=== PATIENT | female | born 1985 | race Caucasian/White ===

== ENCOUNTER → 2016-10-04 | Outpatient (REF) | payer OTHER ==
[2016-10-05 12:14] LABS: MEAN CORPUSCULAR HGB CONC 33.1 g/dl (32.0-36.5); MEAN CORPUSCULAR VOLUME 81.4 fl (80.0-96.0); RED CELL DISTRIBUTION WIDTH 12.8 % (11.5-14.5); WHITE BLOOD COUNT 8.8 K/mm3 (4.0-10.0)
[2016-10-05 12:53] LABS: ALBUMIN 4.1 GM/DL (3.2-5.2); ALBUMIN/GLOBULIN RATIO 1.52 (1.00-1.93); ALKALINE PHOSPHATASE 53 U/L (45-117); ALT/SGPT 14 U/L (12-78); ANION GAP 8 MEQ/L (8-16); AST/SGOT 12 U/L (15-37); BILIRUBIN,TOTAL 0.2 MG/DL (0.2-1.0); BLOOD UREA NITROGEN 11 MG/DL (7-18); CALCIUM LEVEL 8.8 MG/DL (8.5-10.1); CARBON DIOXIDE LEVEL 27 MEQ/L (21-32); CHLORIDE LEVEL 105 MEQ/L (98-107); CHOLESTEROL LEVEL 168 MG/DL (<200); CREATININE FOR GFR 0.85 MG/DL (0.55-1.02); FERRITIN 11 NG/ML (8-252); FREE T4 0.86 NG/DL (0.76-1.46); GLOMERULAR FILTRATION RATE > 60.0 (>60); GLUCOSE, FASTING 81 MG/DL (70-105); POTASSIUM SERUM 3.8 MEQ/L (3.5-5.1); SODIUM LEVEL 140 MEQ/L (136-145); TOTAL PROTEIN 6.8 GM/DL (6.4-8.2); TRIGLYCERIDES LEVEL 82 MG/DL (<150)
== END ==
LOC: M SFHCCLAY 14:58
PROVIDERS: ATTEND Family Medicine
DX: Z01.419 Encounter for gynecological examination (general) (routine) without abnormal findings (principal); R53.83 Other fatigue; R03.0 Elevated blood-pressure reading, without diagnosis of hypertension

== ENCOUNTER → 2016-10-04 | Outpatient (REF) | payer OTHER | LOC: M SFHCCLAY 14:15 | PROVIDERS: ATTEND Family Medicine | DX: Z12.4 Encounter for screening for malignant neoplasm of cervix (principal) ==

== ENCOUNTER → 2016-11-15 | Outpatient (REF) | payer OTHER | LOC: M SFHCCLAY 16:12 | PROVIDERS: ATTEND Family Medicine | DX: D23.5 Other benign neoplasm of skin of trunk (principal) ==

== ENCOUNTER → 2017-03-02 | Outpatient (REF) | payer OTHER ==
[2017-03-02 14:31] LABS: LUTEINIZING HORMONE 4.6 mIU/mL
[2017-03-02 14:32] LABS: FOLLICLE STIMULATING HORMONE 5.5 mIU/mL
[2017-03-02 14:37] LABS: FREE T4 0.92 NG/DL (0.76-1.46)
[2017-03-06 00:06] LABS: ESTRONE SERUM 81 pg/mL (.)
== END ==
LOC: M LAB REF 12:22
PROVIDERS: ATTEND Obstetrics & Gynecology
DX: N92.1 Excessive and frequent menstruation with irregular cycle (principal)

== ENCOUNTER → 2018-07-19 | Outpatient (REF) | payer OTHER ==
[2018-07-19 12:30] LABS: BASO # 0.1 10^3/uL (0.0-0.2); BASO % 0.9 % (0.0-1.0); EOS # 0.2 10^3/uL (0.0-0.50); EOS % 1.9 % (0.0-3.0); HEMATOCRIT 40.5 % (36.0-47.0); HEMOGLOBIN 13.2 g/dl (12.0-15.5); LYMPH # 1.9 10^3/uL (1.5-4.5); LYMPH % 24.5 % (24.0-44.0); MEAN CORPUSCULAR HEMOGLOBIN 26.8 pg (27.0-33.0); MEAN CORPUSCULAR HGB CONC 32.6 g/dl (32.0-36.5); MEAN CORPUSCULAR VOLUME 82.2 fl (80.0-96.0); MONO # 0.5 10^3/uL (0.0-0.8); MONO % 6.8 % (0.0-5.0); NEUTROPHILS # 5.1 10^3/uL (1.8-7.7); NEUTROPHILS % 65.6 % (36.0-66.0); PLATELET COUNT, AUTOMATED 295 10^3/uL (150-450); RED BLOOD COUNT 4.93 10^6/uL (4.00-5.40); WHITE BLOOD COUNT 7.7 10^3/uL (4.0-10.0)
[2018-07-19 12:38] LABS: ALBUMIN 4.1 GM/DL (3.2-5.2); ALT/SGPT 14 U/L (12-78); BILIRUBIN,TOTAL 0.4 MG/DL (0.2-1.0); BLOOD UREA NITROGEN 12 MG/DL (7-18); CALCIUM LEVEL 8.8 MG/DL (8.5-10.1); CARBON DIOXIDE LEVEL 26 MEQ/L (21-32); CHLORIDE LEVEL 106 MEQ/L (98-107); GLOMERULAR FILTRATION RATE > 60.0 (>60); GLUCOSE, FASTING 90 MG/DL (70-100); SODIUM LEVEL 139 MEQ/L (136-145); TOTAL PROTEIN 7.1 GM/DL (6.4-8.2)
[2018-07-19 12:46] LABS: HEMOGLOBIN A1c 5.8 %
== END ==
LOC: M SFHCCLAY 08:44
PROVIDERS: ATTEND Family Medicine
DX: Z86.32 Personal history of gestational diabetes (principal); R03.0 Elevated blood-pressure reading, without diagnosis of hypertension; E55.9 Vitamin D deficiency, unspecified

== ENCOUNTER → 2019-01-16 | Outpatient (CLI) | payer OTHER ==
--- NOTE | 2019-01-17 09:20 | REP ---
Clinical: Acute chest pain . Comparison: 07/08/2014 . Technique: PA and lateral. Findings: The mediastinum and cardiac silhouette are normal. The lung marks are clear and without acute consolidation, effusion, or pneumothorax. The skeletal structures are intact and normal. Impression: 1. No acute cardiopulmonary process.
== END ==
LOC: M CLY 08:24
PROVIDERS: ATTEND Family Medicine
DX: R07.89 Other chest pain (principal)

== ENCOUNTER → 2019-04-29 | Outpatient (REF) | payer OTHER | LOC: M LAB REF 13:42 | PROVIDERS: ATTEND Obstetrics & Gynecology | DX: N89.8 Other specified noninflammatory disorders of vagina (principal) ==

== ENCOUNTER → 2019-07-24 | Outpatient (REF) | payer OTHER ==
[2019-07-24 12:26] LABS: BASO # 0.1 10^3/uL (0.0-0.2); BASO % 0.7 % (0.0-1.0); EOS # 0.2 10^3/uL (0.0-0.5); EOS % 1.8 % (0.0-3.0); HEMATOCRIT 45.5 % (36.0-47.0); HEMOGLOBIN 14.1 g/dl (12.0-15.5); LYMPH # 2.2 10^3/uL (1.5-5.0); LYMPH % 27.1 % (24.0-44.0); MEAN CORPUSCULAR HEMOGLOBIN 26.5 pg (27.0-33.0); MEAN CORPUSCULAR VOLUME 85.4 fl (80.0-96.0); MONO # 0.5 10^3/uL (0.0-0.8); MONO % 5.7 % (0.0-5.0); NEUTROPHILS # 5.2 10^3/uL (1.5-8.5); NEUTROPHILS % 64.2 % (36.0-66.0); PLATELET COUNT, AUTOMATED 341 10^3/uL (150-450); RED BLOOD COUNT 5.33 10^6/uL (4.00-5.40); WHITE BLOOD COUNT 8.1 10^3/uL (4.0-10.0)
[2019-07-24 13:06] LABS: ALBUMIN 4.4 GM/DL (3.2-5.2); ALT/SGPT 30 U/L (12-78); BILIRUBIN,TOTAL 0.4 MG/DL (0.2-1.0); BLOOD UREA NITROGEN 12 MG/DL (7-18); CALCIUM LEVEL 9.2 MG/DL (8.5-10.1); CARBON DIOXIDE LEVEL 27 MEQ/L (21-32); CHLORIDE LEVEL 107 MEQ/L (98-107); CHOLESTEROL LEVEL 183 MG/DL (<200); CREATININE FOR GFR 0.74 MG/DL (0.55-1.30); GLOMERULAR FILTRATION RATE > 60.0 (>60); GLUCOSE, FASTING 91 MG/DL (70-100); HDL CHOLESTEROL 57 MG/DL (>40); LDL CHOLESTEROL 113 MG/DL (<100); NON-HDL-C 126 MG/DL; POTASSIUM SERUM 4.8 MEQ/L (3.5-5.1); SODIUM LEVEL 139 MEQ/L (136-145); THYROID STIMULATING HORMONE 0.322 uIU/ML (0.358-3.740); TOTAL PROTEIN 7.4 GM/DL (6.4-8.2); TRIGLYCERIDES LEVEL 64 MG/DL (<150)
[2019-07-24 13:46] LABS: HEMOGLOBIN A1c 5.5 %
== END ==
LOC: M SFHCCLAY 09:11
PROVIDERS: ATTEND Family Medicine
DX: R73.01 Impaired fasting glucose (principal); Z86.32 Personal history of gestational diabetes; R03.0 Elevated blood-pressure reading, without diagnosis of hypertension; Z13.220 Encounter for screening for lipoid disorders; Z13.29 Encounter for screening for other suspected endocrine disorder; E55.9 Vitamin D deficiency, unspecified

== ENCOUNTER → 2019-10-10 | Outpatient (REF) | payer MEDICAID, OTHER ==
[2019-10-10 17:16] LABS: BASO # 0.1 10^3/uL (0.0-0.2); BASO % 0.5 % (0.0-1.0); EOS # 0.1 10^3/uL (0.0-0.5); EOS % 0.7 % (0.0-3.0); HEMATOCRIT 43.2 % (36.0-47.0); HEMOGLOBIN 13.7 g/dl (12.0-15.5); LYMPH # 1.9 10^3/uL (1.5-5.0); LYMPH % 18.6 % (24.0-44.0); MEAN CORPUSCULAR HEMOGLOBIN 26.8 pg (27.0-33.0); MEAN CORPUSCULAR HGB CONC 31.7 g/dl (32.0-36.5); MEAN CORPUSCULAR VOLUME 84.4 fl (80.0-96.0); MONO # 0.4 10^3/uL (0.0-0.8); MONO % 4.3 % (0.0-5.0); NEUTROPHILS # 7.8 10^3/uL (1.5-8.5); NEUTROPHILS % 75.5 % (36.0-66.0); PLATELET COUNT, AUTOMATED 287 10^3/uL (150-450); RED BLOOD COUNT 5.12 10^6/uL (4.00-5.40); WHITE BLOOD COUNT 10.4 10^3/uL (4.0-10.0)
[2019-10-10 17:44] LABS: ALBUMIN 4.1 GM/DL (3.2-5.2); ALT/SGPT 24 U/L (12-78); BILIRUBIN,TOTAL 0.2 MG/DL (0.2-1.0); BLOOD UREA NITROGEN 10 MG/DL (7-18); CARBON DIOXIDE LEVEL 28 MEQ/L (21-32); CHLORIDE LEVEL 106 MEQ/L (98-107); CREATININE FOR GFR 0.83 MG/DL (0.55-1.30); GLOMERULAR FILTRATION RATE > 60.0 (>60); GLUCOSE, FASTING 104 MG/DL (70-100); IMMUNOGLOBULIN G 800 MG/DL (681-1648); POTASSIUM SERUM 3.7 MEQ/L (3.5-5.1); SODIUM LEVEL 138 MEQ/L (136-145); TOTAL PROTEIN 7.5 GM/DL (6.4-8.2)
[2019-10-10 17:45] LABS: IMMUNOGLOBULIN E < 3.6 IU/ML (<100)
[2019-10-10 17:53] LABS: ERYTHROCYTE SEDIMENTATION RATE 4 mm/hr (0-20)
[2019-10-14 00:06] LABS: ANTI TETANUS ANTIBODY 1.77 IU/mL (<0.10)
[2019-10-18 00:07] LABS: STREP PNEUMO TYPE 1 0.5 ug/mL (>1.3); STREP PNEUMO TYPE 12F 0.2 ug/mL (>1.3); STREP PNEUMO TYPE 14 0.3 ug/mL (>1.3); STREP PNEUMO TYPE 18C 0.7 ug/mL (>1.3); STREP PNEUMO TYPE 19A 8.5 ug/mL (>1.3); STREP PNEUMO TYPE 19F 5.4 ug/mL (>1.3); STREP PNEUMO TYPE 23F 0.1 ug/mL (>1.3); STREP PNEUMO TYPE 3 9.3 ug/mL (>1.3); STREP PNEUMO TYPE 4 0.1 ug/mL (>1.3); STREP PNEUMO TYPE 6B 0.4 ug/mL (>1.3); STREP PNEUMO TYPE 7F 0.2 ug/mL (>1.3); STREP PNEUMO TYPE 8 0.3 ug/mL (>1.3); STREP PNEUMO TYPE 9N 0.2 ug/mL (>1.3); STREP PNEUMO TYPE 9V 0.2 ug/mL (>1.3)
== END ==
LOC: M LABDRAWC 16:12
PROVIDERS: ATTEND Allergy & Immunology Allergy
DX: D84.9 Immunodeficiency, unspecified (principal)

== ENCOUNTER → 2019-11-03 | Outpatient (REF) | payer OTHER | LOC: M SFHCWAGY 17:55 | PROVIDERS: ATTEND Obstetrics & Gynecology | DX: Z12.4 Encounter for screening for malignant neoplasm of cervix (principal) ==

== ENCOUNTER → 2019-12-01 | Outpatient (REF) | payer MEDICAID ==
[2019-12-09 18:07] LABS: STREP PNEUMO TYPE 1 >13.1 ug/mL (>1.3); STREP PNEUMO TYPE 14 >29.1 ug/mL (>1.3); STREP PNEUMO TYPE 18C 1.9 ug/mL (>1.3); STREP PNEUMO TYPE 19A >44.7 ug/mL (>1.3); STREP PNEUMO TYPE 23F 1.1 ug/mL (>1.3); STREP PNEUMO TYPE 3 16.3 ug/mL (>1.3); STREP PNEUMO TYPE 4 0.6 ug/mL (>1.3); STREP PNEUMO TYPE 6B 13.9 ug/mL (>1.3); STREP PNEUMO TYPE 7F 0.9 ug/mL (>1.3); STREP PNEUMO TYPE 8 10.9 ug/mL (>1.3); STREP PNEUMO TYPE 9N 2.1 ug/mL (>1.3); STREP PNEUMO TYPE 9V 2.5 ug/mL (>1.3)
[2019-12-09 19:06] LABS: PNEUMOCOCCAL AB TYPE 14 POST >29.1 ug/mL (>1.3); PNEUMOCOCCAL AB TYPE 19 POST 14.9 ug/mL (>1.3); PNEUMOCOCCAL AB TYPE 23 POST 1.2 ug/mL (>1.3); PNEUMOCOCCAL AB TYPE 26 POST 13.2 ug/mL (>1.3); PNEUMOCOCCAL AB TYPE 4 POST 0.6 ug/mL (>1.3); PNEUMOCOCCAL AB TYPE 68 POST 2.4 ug/mL (>1.3); PNEUMOCOCCAL AB TYPE18C POST 2.1 ug/mL (>1.3)
== END ==
LOC: M LABDRAWC 15:56
PROVIDERS: ATTEND Allergy & Immunology Allergy
DX: D84.9 Immunodeficiency, unspecified (principal)

== ENCOUNTER → 2020-01-11 | Outpatient (CLI) | payer OTHER ==
--- NOTE | 2020-01-11 12:24 | REP ---
FOOT: REASON: Pain. FINDINGS: The joint spaces are symmetric and relatively well maintained. There is no evidence of acute fracture or destructive osseous lesion. IMPRESSION: Negative. Electronically Signed by Gary Kwok DO 01/11/2020 01:11 P
== END ==
LOC: M WUC 11:27
PROVIDERS: ATTEND Physician Assistant
DX: M79.671 Pain in right foot (principal)

== ENCOUNTER → 2020-04-01 | Outpatient (CLI) | payer OTHER ==
--- NOTE | 2020-04-06 07:51 | REP ---
RIGHT LOWER LEG SERIES HISTORY: Contusion mid lower leg. TECHNIQUE: AP and lateral views of the right lower leg are performed. FINDINGS: The tibia and fibula are intact with no evidence of acute fracture, dislocation, or intrinsic bone disease. IMPRESSION: No acute fracture or dislocation. MTDD
== END ==
LOC: M WUC 18:31
PROVIDERS: ATTEND Physician Assistant
DX: M79.661 Pain in right lower leg (principal)

== ENCOUNTER → 2020-07-06 | Outpatient (CLI) | payer OTHER | LOC: M LABSMTC 14:04 | PROVIDERS: ATTEND Family Medicine | DX: Z20.822 Contact with and (suspected) exposure to COVID-19 (principal) ==

== ENCOUNTER → 2020-10-08 | Outpatient (CLI) | payer OTHER ==
--- NOTE | 2020-10-08 12:44 | REP ---
INDICATION: LEFT FLANK PAIN AND MICROHEMATURIA. COMPARISON: Comparison radiographs November 10, 2008.. TECHNIQUE: KUB: Two views presented. FINDINGS: The bowel gas pattern is normal. Air and stool is seen in a nondistended colon. No large or small bowel dilation is seen. No small bowel gas is noted. Psoas margins and flank stripes are intact. No mass or organomegaly is seen. An IUD is noted in place just to the right of midline in the pelvis. IMPRESSION: Negative KUB. IUD noted. <Electronically signed by Gael Srivastava > 10/08/20 0638
== END ==
LOC: M CLY 11:47
PROVIDERS: ATTEND Family Medicine
DX: R10.9 Unspecified abdominal pain (principal); R31.9 Hematuria, unspecified

== ENCOUNTER → 2020-11-18 | Outpatient (REF) | payer OTHER | LOC: M SFHCWAGY 15:16 | PROVIDERS: ATTEND Obstetrics & Gynecology | DX: Z12.4 Encounter for screening for malignant neoplasm of cervix (principal); N93.0 Postcoital and contact bleeding ==

== ENCOUNTER → 2021-01-04 | Outpatient (REF) | payer OTHER ==
[~2021-01-04] MED LIST: ALBU8.5H INH; FLON1SPR; FLUC150T9 PO; FLUT1INH2 INH; LORA-674 PO; MONT10TA97 PO; OMEP-173 PO; VITMTA PO
[2021-01-05 11:43] LABS: BASO # 0.1 10^3/uL (0.0-0.2); BASO % 0.6 % (0.0-1.0); EOS # 0.2 10^3/uL (0.0-0.5); EOS % 1.9 % (0.0-3.0); HEMATOCRIT 44.7 % (36.0-47.0); HEMOGLOBIN 14.3 g/dl (12.0-15.5); LYMPH # 2.6 10^3/uL (1.5-5.0); LYMPH % 27.6 % (24.0-44.0); MEAN CORPUSCULAR HEMOGLOBIN 26.8 pg (27.0-33.0); MEAN CORPUSCULAR VOLUME 83.9 fl (80.0-96.0); MONO # 0.5 10^3/uL (0.0-0.8); MONO % 5.3 % (2.0-8.0); NEUTROPHILS % 64.3 % (36.0-66.0); PLATELET COUNT, AUTOMATED 308 10^3/uL (150-450); RED BLOOD COUNT 5.33 10^6/uL (4.00-5.40); WHITE BLOOD COUNT 9.3 10^3/uL (4.0-10.0)
[2021-01-05 12:40] LABS: ALBUMIN 4.1 GM/DL (3.2-5.2); ALT/SGPT 22 U/L (12-78); BILIRUBIN,TOTAL 0.3 MG/DL (0.2-1.0); BLOOD UREA NITROGEN 14 MG/DL (7-18); CALCIUM LEVEL 9.5 MG/DL (8.5-10.1); CARBON DIOXIDE LEVEL 26 MEQ/L (21-32); CHLORIDE LEVEL 107 MEQ/L (98-107); CREATININE FOR GFR 0.85 MG/DL (0.55-1.30); GLOMERULAR FILTRATION RATE > 60.0 (>60); GLUCOSE, FASTING 124 MG/DL (70-100); MAGNESIUM LEVEL 2.3 MG/DL (1.8-2.4); POTASSIUM SERUM 6.2 MEQ/L (3.5-5.1); SODIUM LEVEL 137 MEQ/L (136-145); THYROID STIMULATING HORMONE 0.183 uIU/ML (0.358-3.740); TOTAL PROTEIN 7.3 GM/DL (6.4-8.2)
[2021-01-05 12:49] LABS: HEMOGLOBIN A1c 5.5 %
== END ==
LOC: M SFHCCLAY 13:47
PROVIDERS: ATTEND Family Medicine
DX: R03.0 Elevated blood-pressure reading, without diagnosis of hypertension (principal); K21.9 Gastro-esophageal reflux disease without esophagitis; R73.01 Impaired fasting glucose; R79.89 Other specified abnormal findings of blood chemistry

== ENCOUNTER → 2021-01-06 | Outpatient (REF) | payer OTHER ==
[2021-01-06 12:54] LABS: BLOOD UREA NITROGEN 17 MG/DL (7-18); CALCIUM LEVEL 8.8 MG/DL (8.5-10.1); CARBON DIOXIDE LEVEL 24 MEQ/L (21-32); CHLORIDE LEVEL 106 MEQ/L (98-107); GLOMERULAR FILTRATION RATE > 60.0 (>60); GLUCOSE, FASTING 154 MG/DL (70-100); POTASSIUM SERUM 4.3 MEQ/L (3.5-5.1); SODIUM LEVEL 137 MEQ/L (136-145)
== END ==
LOC: M SFHCCLAY 07:30
PROVIDERS: ATTEND Family Medicine
DX: E87.5 Hyperkalemia (principal)

== ENCOUNTER → 2021-04-13 | Outpatient (CLI) | payer OTHER ==
[~2021-04-13] MED LIST changes: -FLUC150T9 PO; +MONT10TA10 PO; -MONT10TA97 PO; -OMEP-173 PO; +OMEP-218 PO
== END ==
LOC: M LABSMTC 09:12
PROVIDERS: ATTEND Anesthesiology
DX: Z01.818 Encounter for other preprocedural examination (principal); Z11.52 Encounter for screening for COVID-19

== ENCOUNTER 2021-04-18 07:05 | Day surgery (SDC) | payer OTHER ==
[~2021-04-18] VITALS: Ht 160 cm; Wt 67.3 kg
[~2021-04-18 07:05] MED LIST changes: +DESFLURANE 240 ML INHALANT As Ordered ONE; +LR 1,000 ML IV ONE; +ceFAZolin SOD 2 GM in IV 1 EA IV ONE
--- OUTSIDE RECORDS SUMMARY | 2021-04-18 07:10 | CCD ---
Author Author [facility] Organization [facility] Address Unknown Phone Unavailable Care Team Providers Care Gopherman Name Role Phone Sophie Ritchie Unavailable PROBLEMS Type Condition ICD9-CM Code [id number] Code Onset Dates Condition S tatus W/U Status Risk SNOMED Code Notes Problem Blood pressure elevated without history of HTN R03 .0 Active confirmed 675462334 Problem Mild persistent asthma without complication J45.30 Active confirmed 387901551 Problem Frontal sinusitis, unspecified chronicity J32.1 Active confirmed 88802911 Problem History of gestational diabetes Z86.32 Active confi rmed 835786500 Problem Mild intermittent asthma without complication J45. 20 Active confirmed 160098151 Problem Migraine with aura and without status migrainosu s, not intractable G43.109 Active confirmed 5752925 Problem Postcoital and contact bleeding N93.0 Active confi rmed 57050687 Problem Non-seasonal allergic rhinitis, unspecified trigger J30.89 Active confirmed 76693481 Problem Abnormal uterine bleeding (AUB) N93.9 Active confirmed 31974887782802 Problem Acute upper respiratory infection, unspecified J06 .9 Active confirmed 433666054 Problem Vitamin D deficiency E55.9 Active confirmed 59108729 Problem Acute non-recurrent maxillary sinusitis J01.00 Active confirmed 74295121 Problem GERD without esophagitis K21.9 Active confirmed 524071710 Problem Gynecological complaint N94.9 Active confirmed 020114227 ALLERGIES Allergen (clinical drug ingredient) Drug/Non Drug Allergy do cumented on EMR Reaction Allergy Type Onset Date Status Levaquin Rash Drug Allergy Active Sulfasalazine Sulfa Antibiotics Hives Drug Allergy Ac tive amoxicillin Amoxicillin([facility] Code:[address]-05) Rash Drug Aller gy Active ENCOUNTERS from 1983 to 2021-04-13 Encounter Location Date Provider Diagnosis [facility] [address] [facility] [phone] [place] [address] Mar, Sophie Ritchie Pelvic pain R10.2 ; Abnormal uterine bleeding (AUB) N93.9 and Fibroid uterus D25.9 IMMUNIZATIONS Vaccine Route Administration Date Status Pfizer #2 dose COVID-19 (given elsewhere) SARSCOV2 VAC 30MCG /0.3ML IM Unknown Mar 22, 2021 Administered Pfizer #1 dose COVID-19 (given elsewhere) SARSCOV2 VAC 30MCG /0.3ML IM Unknown Mar 01, 2021 Administered Pneumococcal Adult 0.5mL Pneumovax 23 IM Intramuscular November 02 020 Administered Influenza 6mo & up Fluzone Unknown May 08, 2017 Refus ed Influenza 6mo & up Fluzone Unknown Aug 04, 2016 Refus ed Influenza 6mo & up Fluzone Unknown May 29, 2016 Refus ed Influenza 6mo & up Fluzone IM Apr 28, 2010 Admin istered SOCIAL HISTORY Tobacco Use: Social History Observation Description Date Details (start date - stop date) Never Smoker Sex Assigned At : Social History Observation Description Sex Assigned At Unknown Audit Question Answer Notes Total Score: 0 Interpretation: Alcohol Education Quaker: Question Answer Notes Quaker 03 Sabianist Drug and Alcohol Question Answer Notes Total Score: 0 Interpretation: No problems reported Alcohol Screening: Question Answer Notes Did you have a drink containing alcohol in the past year? Ye s Points 1 Interpretation Negative How often did you have six or more drinks on one occas ion in the past year? Never (0 points) How many drinks did you have on a typica l day when you were drinking in the past year? 1 or 2 (0 points) How often did you have a drink containing alcohol in t he past year? Monthly or less (1 point) BMI Care Goal Follow-Up Question Answer Notes Above Normal BMI Follow-Up Dietary management educatio n, guidance, and counseling Tobacco Use: Question Answer Notes Are you a: never smoker REASON FOR REFERRAL No Information VITAL SIGNS Weight 147.7 lbs Mar, Height 61.5 in Mar, BMI 27.45 kg/m2 Mar, Blood pressure systolic 132 mm Hg Mar, Blood pressure diastolic 80 mm Hg Mar, MEDICATIONS Medication SIG (Take, Route, Frequency, Duration) Notes Start Da te End Date Status Acetaminophen 325 MG 2 tablets as needed Orally every 6 hrs Active Singulair 10 MG 1 tablet Orally Once a day Active Mirena (52 MG) 20 MCG/24HR Intrauterine Active Maxalt 10 MG 1 tablet as needed one time Orally Once a day as needed- may repeat in 1-2 hours for 30 day(s) Activ e Omeprazole 20 MG TAKE ONE CAPSULE BY MOUTH EVERY DAY for 90 Active ProAir HFA 108 (90 Base) MCG/ACT 2 puffs as needed Inh alation qid prn for 30 Days Active Eye Drop Delivery Aid Act maurisio Symbicort 80-4.5 MCG/ACT 2 puffs Inhalation Once a day Active Fluticasone Propionate 50 MCG/ACT 1 spray in each nostril Nasally bid Active Loratadine 10 MG 1 tablet Orally Once a day for 30 days Active Multi For Her - Orally Daily Active Omeprazole 20 MG 1 capsule 30 minutes before morning meal Orally On a day Active PROCEDURES No Information RESULTS No Results REASON FOR VISIT PRE OP SURG 04/18/21 MEDICAL (GENERAL) HISTORY Type Description Date Medical History Asthma Medical History Allergies Medical History Endometriosis Surgical History Tubal ligation 2010 Hospitalization History Childbirth 2006 Hospitalization History Childbirth 2010 Goals Section No Information Health Concerns No Information MEDICAL EQUIPMENT No Information MENTAL STATUS No Information FUNCTIONAL STATUS No Information ASSESSMENTS Encounter Date Diagnosis Assessment Notes Treatment Notes Treatm ent Clinical Notes Mar, Pelvic pain (ICD-10 - R10.2) Mar, Abnormal uterine bleeding (AUB) (ICD-10 - N93.9) Pre-Operative CounselingProcedure: Robotic hysterectomy bilateral and bilateral salpingectomySurgeon: Sophie Ritchie MDAssistant: Arlet Cerda NP Patient has been counseling regarding the risks of the procedure to include anesthesia risks to include , bleeding/need for blood transfusion, infection, damage to internal organs, postoperative pain and need for future surgery based on findings. She understands these risks and wishes to proceed with the above procedures. Mar, Fibroid uterus (ICD-10 - D25.9) PLAN OF TREATMENT Medication Medication Name Sig Start Date Stop Date Symbicort 80-4.5 MCG/ACT 2 puffs Inhalation Once a day Loratadine 10 MG 1 tablet Orally Once a day for 30 days Omeprazole 20 MG 1 capsule 30 minutes before morning meal Orally Once a day ProAir HFA 108 (90 Base) MCG/ACT 2 puffs as needed Inh alation qid prn for 30 Days Fluticasone Propionate 50 MCG/ACT 1 spray in each nostril Nasall y bid Singulair 10 MG 1 tablet Orally Once a day Treatment Notes Assessment Notes Clinical Notes Abnormal uterine bleeding (AUB) Pre-Oper ative CounselingProcedure: Robotic hysterectomy bilateral and bilateral salpingectomySurgeon: Sophie Ritchie MDAssistant: Arlet Cerda NP Patient has been counseling regarding the risks of the procedure to include anesthesia risks to include , bleeding/need for blood transfusion, infection, damage to internal organs, postoperative pain and need for future surgery based on findings. She understands these risks and wishes to proceed with the above procedures. Next Appt Details Provider Name:Sophie Ritchie, 2021-04-18 0 8:30:00 AM, [address] [place] [address], , [place], [address], Provider Name:Sophie Ritchie, 2021-05-03 0 8:20:00 AM, [address] [place] [address], , [place], [address], Provider Name:Sophie Ritchie, 2021-05-31 0 8:20:00 AM, [address] [place] [address], , [place], [address], Provider Name:Chris Fischer, 11:00:00 AM, [address] , , [place], [address], Insurance Providers Payer Name Payer Address Payer Phone Insured Name Patient Relati onship to Insured Coverage Start Date Coverage End Date [facility] [address] [facility] [phone] EDVIN SALAS
--- OUTSIDE RECORDS SUMMARY | 2021-04-18 07:10 | CCD ---
Author Author [facility] Organization [facility] Address Unknown Phone Unavailable Care Team Providers Care Kettle Girl Name Role Phone Sophie Ritchie Unavailable PROBLEMS Type Condition ICD9-CM Code [id number] Code Onset Dates Condition S tatus W/U Status Risk SNOMED Code Notes Problem Blood pressure elevated without history of HTN R03 .0 Active confirmed 564386641 Problem Mild persistent asthma without complication J45.30 Active confirmed 041585367 Problem Frontal sinusitis, unspecified chronicity J32.1 Active confirmed 08635044 Problem History of gestational diabetes Z86.32 Active confi rmed 954613863 Problem Mild intermittent asthma without complication J45. 20 Active confirmed 312134435 Problem Migraine with aura and without status migrainosu s, not intractable G43.109 Active confirmed 1303339 Problem Postcoital and contact bleeding N93.0 Active confi rmed 94176263 Problem Non-seasonal allergic rhinitis, unspecified trigger J30.89 Active confirmed 94595587 Problem Abnormal uterine bleeding (AUB) N93.9 Active confirmed 62756428495243 Problem Acute upper respiratory infection, unspecified J06 .9 Active confirmed 900349652 Problem Vitamin D deficiency E55.9 Active confirmed 86344550 Problem Acute non-recurrent maxillary sinusitis J01.00 Active confirmed 93584628 Problem GERD without esophagitis K21.9 Active confirmed 402013630 Problem Gynecological complaint N94.9 Active confirmed 988544525 ALLERGIES Allergen (clinical drug ingredient) Drug/Non Drug Allergy do cumented on EMR Reaction Allergy Type Onset Date Status Levaquin Rash Drug Allergy Active Sulfasalazine Sulfa Antibiotics Hives Drug Allergy Ac tive amoxicillin Amoxicillin([facility] Code:[address]-70) Rash Drug Aller gy Active ENCOUNTERS from 1983 to 2021-04-15 Encounter Location Date Provider Diagnosis [facility] [address] [facility] [phone] [place] [address] Mar, Sophie Ritchie IMMUNIZATIONS Vaccine Route Administration Date Status Pfizer #2 dose COVID-19 (given elsewhere) SARSCOV2 VAC 30MCG /0.3ML IM Unknown Mar 22, 2021 Administered Pfizer #1 dose COVID-19 (given elsewhere) SARSCOV2 VAC 30MCG /0.3ML IM Unknown Mar 01, 2021 Administered Pneumococcal Adult 0.5mL Pneumovax 23 IM Intramuscular November 02 Administered Influenza 6mo & up Fluzone Unknown [...] Notes Total Score: 0 Interpretation: Alcohol Education Sabianist: Question Answer Notes Sabianist 03 Voodoo Drug and Alcohol Question Answer Notes Total [...] REASON FOR REFERRAL No Information VITAL SIGNS No information MEDICATIONS Medication SIG (Take, Route, Frequency, Duration) [...] 30 minutes before morning meal Orally On ce a day Active PROCEDURES No Information RESULTS No Results REASON FOR VISIT 04/18/21 SURG AUTH MEDICAL (GENERAL) HISTORY Type Description Date Medical History Asthma Medical History Allergies Medical History Endometriosis Surgical History Tubal ligation 2010 Hospitalization History Childbirth 2006 Hospitalization History Childbirth 2010 Goals Section No Information Health Concerns No Information MEDICAL EQUIPMENT No Information MENTAL STATUS No Information FUNCTIONAL STATUS No Information ASSESSMENTS No Information PLAN OF TREATMENT Medication Medication Name Sig [...] MG 1 tablet Orally Once a day Next Appt Details Provider Name:Sophie Ritchie, 2021-04-18 0 8:30:00 AM, [address] [place] [address] , [place], [address], Provider Name:Sophie Ritchie, 2021-05-03 0 8:20:00 AM, [address] [place] [address] , [place], [address], Provider Name:Sophie Ritchie, 2021-05-31 0 8:20:00 AM, [address] [place] [phone], [place], [address], Provider Name:Chris Sherman Startheresa, 11:00:00 AM, [address] , , [place], [address], Insurance Providers Payer Name Payer Address Payer Phone Insured Name Patient Relati onship to Insured Coverage Start Date Coverage End Date [facility] [address] [facility] [phone] EDVIN SALAS self
--- OUTSIDE RECORDS SUMMARY | 2021-04-18 07:11 | CCD ---
Author Author [facility] Organization [facility] Address Unknown Phone Unavailable Care Team Providers Care Senior Sales Engineer Name Role Phone Chaka Debbie ENTRY LEVEL MARKETING REPRESENTATIVE Unavailable Unavailable Null, Debbie ENTRY LEVEL MARKETING REPRESENTATIVE Unavailable Unavailable Null, Debbie ENTRY LEVEL MARKETING REPRESENTATIVE Unavailable Unavailable Null, Debbie ENTRY LEVEL MARKETING REPRESENTATIVE Unavailable Unavailable Null, Debbie ENTRY LEVEL MARKETING REPRESENTATIVE Unavailable Unavailable Null, Debbie ENTRY LEVEL MARKETING REPRESENTATIVE Unavailable Unavailable Null, Debbie ENTRY LEVEL MARKETING REPRESENTATIVE Unavailable Unavailable Null, Debbie ENTRY LEVEL MARKETING REPRESENTATIVE Unavailable Unavailable Null, Debbie ENTRY LEVEL MARKETING REPRESENTATIVE Unavailable Unavailable Null, Debbie ENTRY LEVEL MARKETING REPRESENTATIVE Unavailable Unavailable Null, Debbie ENTRY LEVEL MARKETING REPRESENTATIVE Unavailable Unavailable Null, Debbie ENTRY LEVEL MARKETING REPRESENTATIVE Unavailable Unavailable Null, Debbie ENTRY LEVEL MARKETING REPRESENTATIVE Unavailable Unavailable LETTIERE, Sussy KHAN PA Unavailable Unavailable LETTIERE, Sussy KHAN PA Unavailable Unavailable LETTIERE, Sussy KHAN PA Unavailable Unavailable LETTIERE, Sussy KHAN PA Unavailable Unavailable LETTIERE, Sussy KHAN PA Unavailable Unavailable LETTIERE, Sussy KHAN PA Unavailable Unavailable LETTIERE, Sussy KHAN PA Unavailable Unavailable LETTIERE, Sussy KHAN PA Unavailable Unavailable LETTIERE, Sussy KHAN PA Unavailable Unavailable LETTIERE, Sussy KHAN PA Unavailable Unavailable LETTIERE, Sussy KHAN PA Unavailable Unavailable LETTIERE, Sussy KHAN PA Unavailable Unavailable LETTIERE, Sussy KHAN PA Unavailable Unavailable LETTIERE, Sussy KHAN PA Unavailable Unavailable LETTIERE, Sussy KHAN PA Unavailable Unavailable LETTIERE, A BILL PA Unavailable Unavailable LETTIERE, A BILL PA Unavailable Unavailable LETTIERE, A BILL PA Unavailable Unavailable LETTIERE, A BILL PA Unavailable Unavailable LETTIERE, A BILL PA Unavailable Unavailable LETTIERE, A BILL PA Unavailable Unavailable LETTIERE, A BILL PA Unavailable Unavailable LETTIERE, A BILL PA Unavailable Unavailable LETTIERE, A BILL PA Unavailable Unavailable LETTIERE, A BILL PA Unavailable Unavailable LETTIERE, A BILL PA Unavailable Unavailable LETTIERE, A BILL PA Unavailable Unavailable LETTIERE, A BILL PA Unavailable Unavailable LETTIERE, A BILL PA Unavailable Unavailable LETTIERE, A BILL PA Unavailable Unavailable LETTIERE, A BILL PA Unavailable Unavailable CHROSTOWSKINAN MD Unavailable Unavailable CHROSTOWSKINAN MD Unavailable Unavailable CHROSTOWSKINAN MD Unavailable Unavailable CHROSTNAN SAINZ MD Unavailable Unavailable CHROSTNAN SAINZ MD Unavailable Unavailable CHROSTNAN SAINZ MD Unavailable Unavailable CHROSTOWSKINAN MD Unavailable Unavailable CHROSTNAN SAINZ MD Unavailable Unavailable CHROSTOWSKINAN MD Unavailable Unavailable CHROSTNAN SAINZ MD Unavailable Unavailable CHROSTOWSKINAN MD Unavailable Unavailable CHROSTOWSKINAN MD Unavailable Unavailable CHROSTOWSKINAN MD Unavailable Unavailable CHROSTOWSKINAN MD Unavailable Unavailable CHROSTNAN SAINZ MD Unavailable Unavailable CHROSTNAN SAINZ MD Unavailable Unavailable CHROSTNAN SAINZ MD Unavailable Unavailable CHROSTOWSKINAN MD Unavailable Unavailable CHROSTOWSKINAN MD Unavailable Unavailable CHROSTOWSKINAN MD Unavailable Unavailable CHROSTNAN SAINZ MD Unavailable Unavailable CHROSTOWSKINAN MD Unavailable Unavailable CHROSTOWSKINAN MD Unavailable Unavailable CHROSTOWSKINAN MD Unavailable Unavailable CHROSTOWSKINAN MD Unavailable Unavailable CHROSTOWSKINAN MD Unavailable Unavailable CHROSTOWSKINAN MD Unavailable Unavailable CHROSTNAN SAINZ MD Unavailable Unavailable CHROSTOWSKINAN MD Unavailable Unavailable CHROSTNAN SAINZ MD Unavailable Unavailable CHROSTOWSKINAN MD Unavailable Unavailable CHROSTNAN SAINZ MD Unavailable Unavailable CHROSTOWSKINAN MD Unavailable Unavailable CHROSTOWSKINAN MD Unavailable Unavailable CHROSTOWSKINAN MD Unavailable Unavailable CHROSTNAN SAINZ MD Unavailable Unavailable CHROSTYAN SIANZIUSZ MD Unavailable Unavailable NAN WHITE MD Unavailable Unavailable NAN WHITE MD Unavailable Unavailable Velazquez, Toshia Magdalena PA Unavailable Unavailable Velazquez, Toshia Magdalena PA Unavailable Unavailable Velazquez, Toshia Magdalena PA Unavailable Unavailable Velazquez, Toshia Magdalena PA Unavailable Unavailable Velazquez, Toshia Magdalena PA Unavailable Unavailable Velazquez, Toshia Magdalena PA Unavailable Unavailable Velazquez, Toshia Magdalena PA Unavailable Unavailable Velazquez, Toshia Magdalena PA Unavailable Unavailable Velazquez, Toshia Magdalena PA Unavailable Unavailable Velazquez, Toshia Magdalena PA Unavailable Unavailable Campanaro, Mare Nidia PA Unavailable Unavailable Campanaro, Mare Nidia PA Unavailable Unavailable Campanaro, Mare Nidia PA Unavailable Unavailable Campanaro, Mare Nidia PA Unavailable Unavailable Campanaro, Mare Nidia PA Unavailable Unavailable Campanaro, Mare Nidia PA Unavailable Unavailable Campanaro, Mare Nidia PA Unavailable Unavailable Campanaro, Mare Nidia PA Unavailable Unavailable Campanaro, Mare Nidia PA Unavailable Unavailable Campanaro, Mare Nidia PA Unavailable Unavailable Campanaro, Mare Nidia PA Unavailable Unavailable Campanaro, Mare Nidia PA Unavailable Unavailable Campanaro, Mare Nidia PA Unavailable Unavailable Campanaro, Mare Nidia PA Unavailable Unavailable Campanaro, Mare Nidia PA Unavailable Unavailable Campanaro, Mare Nidia PA Unavailable Unavailable Campanaro, Mare Nidia PA Unavailable Unavailable Overholt, T Guy PA Unavailable Unavailable Overholt, T Guy PA Unavailable Unavailable Overholt, T Guy PA Unavailable Unavailable Overholt, T Guy PA Unavailable Unavailable Overholt, T Guy PA Unavailable Unavailable Overholt, T Guy PA Unavailable Unavailable Overholt, T Guy PA Unavailable Unavailable Overholt, T Guy PA Unavailable Unavailable Overholt, T Guy PA Unavailable Unavailable Overholt, T Guy PA Unavailable Unavailable Overholt, T Guy PA Unavailable Unavailable Overholt, T Guy PA Unavailable Unavailable Overholt, T Guy PA Unavailable Unavailable Overholt, T Guy PA Unavailable Unavailable Overholt, T Guy PA Unavailable Unavailable Overholt, T Guy PA Unavailable Unavailable Re-disclosure Warning The records that you are about to access may contain information from federally-assisted alcohol or drug abuse programs. If such information is present, then the following federally mandated warning applies: This information has been disclosed to you from records protected by federal confidentiality rules (42 CFR part 2). The federal rules prohibit you from making any further disclosure of this information unless further disclosure is expressly permitted by the written consent of the person to whom it pertains or as otherwise permitted by 42 CFR part 2. A general authorization for the release of medical or other information is NOT sufficient for this purpose. The Federal rules restrict any use of the information to criminally investigate or prosecute any alcohol or drug abuse patient.The records that you are about to access may contain highly sensitive health information, the redisclosure of which is protected by Article 27-F of the [facility] Public Health law. If you continue you may have access to information: Regarding HIV / AIDS; Provided by facilities licensed or operated by the [facility] Office of Mental Health; or Provided by the [facility] Office for People With Developmental Disabilities. If such information is present, then the following [facility] mandated warning applies: This information has been disclosed to you from confidential records which are protected by state law. State law prohibits you from making any further disclosure of this information without the specific written consent of the person to whom it pertains, or as otherwise permitted by law. Any unauthorized further disclosure in violation of state law may result in a fine or prison sentence or both. A general authorization for the release of medical or other information is NOT sufficient authorization for further disc losure. Family History Family Member Name Family Member Gender Family Member Status Date o f Status Description Data Source(s) Unknown Unknown Problem [facility] ([facility]) Encounters Encounter Providers Location Date Indications Data Source(s ) Unknown [address] [facility] [place] [address] 04/15/2021 12:00:00 AM EDT eCW1 ([facility]) Outpatient [address] [facility] [place] [address] 04/04/2021 12:00:00 AM EDT eCW1 ([facility]) Outpatient [address] [facility] [place] [address] 04/01/2021 12:00:00 AM EDT eCW1 ([facility]) Unknown [address] [facility] [place] [address] 03/21/2021 12:00:00 AM EDT eCW1 ([facility]) Unknown [address] [facility] [place] [address] 02/08/2021 12:00:00 AM EDT eCW1 ([facility]) Unknown [address] [facility] [place] [address] 01/06/2021 12:00:00 AM EDT eCW1 ([facility]) Unknown [address] [facility] [place] [address] 01/05/2021 12:00:00 AM EDT eCW1 ([facility]) Outpatient [address] [facility] [place] [address] 01/04/2021 12:00:00 AM EDT eCW1 ([facility]) Unknown [address] [facility] [place] [address] 12/17/2020 12:00:00 AM EDT eCW1 ([facility]) Unknown [address] [facility] [place] [address] 12/15/2020 12:00:00 AM EDT eCW1 ([facility]) Outpatient Attender: NAN WHITE MD Main Office 11/30/2020 10:45:00 AM EDT [facility] ([facility] Unknown [address] [facility] [place] [address] 11/23/2020 12:00:00 AM EDT eCW1 ([facility]) Outpatient [address] [facility] [place] [address] 11/18/2020 12:00:00 AM EDT eCW1 ([facility]) Unknown [address] [facility] [place] [address] 10/15/2020 12:00:00 AM EDT eCW1 ([facility]) Outpatient [address] [facility] [place] [address] 10/08/2020 12:00:00 AM EDT eCW1 ([facility]) Unknown [address] [facility] [place] [address] 10/08/2020 12:00:00 AM EDT eCW1 ([facility]) Unknown [address] [facility] [place] [address] 08/24/2020 12:00:00 AM EST eCW1 ([facility]) Outpatient [address] [facility] [place] [address] 07/20/2020 12:00:00 AM EST eCW1 ([facility]) Outpatient Attender: BILL garcia 07/07/2020 08:25:00 AM EST [facility] ([facility]) Outpatient Attender: Magdalena del rioy 07/02/2020 09:15:00 AM EST [facility] ([facility]) Outpatient Attender: Debbie brown 04/23/2020 06:25:00 PM EDT [facility] ([facility]) Outpatient Attender: Nidia garcia 04/01/2020 05:45:00 PM EDT MED[facility] ([facility]) Outpatient Attender: Guy BRADLEY Main Office 03/16/2020 0 9:00:00 AM EDT [facility] ([facility] ) Immunizations Vaccine Date Status Description Data Source(s) Pfizer #2 dose COVID-19 (given elsewhere) SARSCOV2 VAC 30MCG/0.3ML IM 03/22/2021 09:13:00 AM EDT completed eCW1 ([facility]) Pfizer #2 dose COVID-19 (given elsewhere) SARSCOV2 VAC 30MCG/0.3ML IM 03/22/2021 09:13:00 AM EDT completed eCW1 ([facility]) Pfizer #2 dose COVID-19 (given elsewhere) SARSCOV2 VAC 30MCG/0.3ML IM 03/22/2021 09:13:00 AM EDT completed eCW1 ([facility]) COVID-19 VACCINE Pfizer 03/22/2021 12:00:00 AM EDT completed [facility] Vaccine Series Complete: YESThis Data wa s Submitted to [facility]. Pfizer #1 dose COVID-19 (given elsewhere) SARSCOV2 VAC 30MCG/0.3ML IM 03/01/2021 09:12:00 AM EDT completed eCW1 ([facility]) Pfizer #1 dose COVID-19 (given elsewhere) SARSCOV2 VAC 30MCG/0.3ML IM 03/01/2021 09:12:00 AM EDT completed eCW1 ([facility]) Pfizer #1 dose COVID-19 (given elsewhere) SARSCOV2 VAC 30MCG/0.3ML IM 03/01/2021 09:12:00 AM EDT completed eCW1 ([facility]) COVID-19 VACC, MRNA(PFIZER)/PF 03/01/2021 12:00:00 AM EDT completed [facility] COVID-19 VACCINE Pfizer 03/01/2021 12:00:00 AM EDT completed [facility] Vaccine Series Complete: NOThis Data was Submitted to [facility]. Medications Medication Brand Name Start Date Product Form Dose Route Admi nistrative Instructions Pharmacy Instructions Status Indications Reaction Description Data Source(s) 200 mg 04/06/2021 12:00:00 AM EDT tablet 3 TAKE ONE TABLET BY MOUTH THREE TIMES A DAY AFTER MEALS THE DAY BEFORE SURGERY TAKE ONE TABLET BY MOUTH THREE TIMES A DAY AFTER MEALS THE DAY BEFORE SURGERY SOLD: 04/10/2021 [facility] 5-325 mg 04/06/2021 12:00:00 AM EDT tablet 20 TAKE ONE TABLET BY MOUTH EVERY 6 HOURS NEEDED MAXIMUM DAILY DOSE = 4 TAKE ONE TABLET BY MOUTH EVERY 6 HOURS NEEDED MAXIMUM DAILY DOSE = 4 SOLD: 04/10/2021 [facility] 800 mg 04/06/2021 12:00:00 AM EDT tablet 30 TAKE ONE TABLET BY MOUTH WITH FOOD OR MILK NEEDED THREE TIMES A DAY TAKE ONE TABLET BY MOUTH WITH FOOD OR MILK NEEDED THREE TIMES A DAY SOLD: 04/10/2021 [facility] 20 mg 03/04/2021 12:00:00 AM EDT capsule,delayed release (DR/EC) 90 TAKE ONE CAPSULE BY MOUTH EVERY DAY TAKE ONE CAPSULE BY MOUTH EVERY DAY SOLD: 03/11/2021 [facility] 60 ACTUAT Fluticasone propionate 0.113 M G/ACTUAT / Salmeterol xinafoate 0.014 MG/ACTUAT Dry Powder Inhaler 113-14 mcg/actuation FLUTICASONE PROPION/SALMETEROL 12/01/2020 12:00:00 AM EDT aerosol powdr breath activated 3 INHALE ONE PUFF BY MOUTH TWICE A DAY INHALE ONE PUFF BY MOUTH TWICE A DAY SOLD: 12/03/2020 [facility] montelukast 10 MG Oral Tablet MONTELUKAST SODIUM 11/30/2020 12:0 0:00 AM EDT tablet 90 TAKE ONE TABLET BY MOUTH EVERY D AY TAKE ONE TABLET BY MOUTH EVERY DAY SOLD: 12/03/2020 [facility] Ondansetron 4 MG Oral Tablet Ondansetron HCl 4 MG Ondansetro n HCl 4 MG 10/08/2020 12:00:00 AM EDT 1.0 {tablet} active Ondansetron HCl 4 MG eCW1 ([facility]) Ondansetron 4 MG Oral Tablet Ondansetron HCl 4 MG Ondansetro n HCl 4 MG 10/08/2020 12:00:00 AM EDT 1.0 {tablet} active Ondansetron HCl 4 MG eCW1 ([facility]) Ondansetron 4 MG Oral Tablet Ondansetron HCl 4 MG Ondansetro n HCl 4 MG 10/08/2020 12:00:00 AM EDT 1.0 {tablet} active Ondansetron HCl 4 MG eCW1 ([facility]) Ondansetron 4 MG Oral Tablet Ondansetron HCl 4 MG Ondansetro n HCl 4 MG 10/08/2020 12:00:00 AM EDT 1.0 {tablet} active Ondansetron HCl 4 MG eCW1 ([facility]) Ondansetron 4 MG Oral Tablet Ondansetron HCl 4 MG Ondansetro n HCl 4 MG 10/08/2020 12:00:00 AM EDT 1.0 {tablet} active Ondansetron HCl 4 MG eCW1 ([facility]) Ondansetron 4 MG Oral Tablet Ondansetron HCl 4 MG Ondansetro n HCl 4 MG 10/08/2020 12:00:00 AM EDT 1.0 {tablet} active Ondansetron HCl 4 MG eCW1 ([facility]) 4 mg 10/08/2020 12:00:00 AM EDT tablet 20 TAKE ONE TABLET BY MOUTH EVERY 4 HOURS NEEDED FOR 5 DAYS TAKE ONE TABLET BY MOUTH EVERY 4 HOURS A S NEEDED FOR 5 DAYS SOLD: 10/08/2020 [facility] Ondansetron 4 MG Oral Tablet Ondansetron HCl 4 MG Ondansetro n HCl 4 MG 10/08/2020 12:00:00 AM EDT 1.0 {tablet} active Ondansetron HCl 4 MG eCW1 ([facility]) 90 mcg/actuation 07/20/2020 12:00:00 AM EST HFA aerosol inha ler 8 INHALE TWO PUFFS BY MOUTH FOUR TIMES A DAY NEEDED INHALE TWO PUFFS BY MOUTH FOUR TIMES A DAY NEEDED SOLD: 03/04/2021 [facility] 10 mg 07/20/2020 12:00:00 AM EST tablet 30 TAKE ONE TABLET BY MOUTH EVERY DAY TAKE ONE TABLET BY MOUTH EVERY DAY SOLD: 03/04/2021 [facility] 90 mcg/actuation 07/20/2020 12:00:00 AM EST HFA aerosol inha ler 8 INHALE TWO PUFFS BY MOUTH FOUR TIMES A DAY NEEDED INHALE TWO PUFFS BY MOUTH FOUR TIMES A DAY NEEDED SOLD: 07/21/2020 [facility] 10 mg 07/20/2020 12:00:00 AM EST tablet 30 TAKE ONE TABLET BY MOUTH EVERY DAY TAKE ONE TABLET BY MOUTH EVERY DAY SOLD: 11/26/2020 [facility] 10 mg 07/20/2020 12:00:00 AM EST tablet 30 TAKE ONE TABLET BY MOUTH EVERY DAY TAKE ONE TABLET BY MOUTH EVERY DAY SOLD: 07/21/2020 [facility] cefdinir 300 MG Oral Capsule Cefdinir 04/23/2020 12:00:00 AM EDT ORAL completed [facility] ([facility]) Fluconazole 150 MG Oral Tablet Fluconazole 04/23/2020 12:00:00 AM EDT completed [facility] ([facility]) 150 mg 04/23/2020 12:00:00 AM EDT tablet 2 TAKE 1 TABLET BY MOUTH AT ONSET OF SYMPTOMS, MAY REPEAT IN 1 WEEK TAKE 1 TABLET BY MOUTH AT ONSET OF SYMPT OMS, MAY REPEAT IN 1 WEEK SOLD: 04/24/2020 [facility] 300 mg 04/23/2020 12:00:00 AM EDT capsule 20 TAKE ONE CAPSULE BY MOUTH TWICE A DAY FOR 10 DAYS TAKE ONE CAPSULE BY MOUTH TWICE A DAY FOR 10 DAYS SOLD : 04/24/2020 [facility] Aspercreme Lidocaine Max Strength Aspercreme Lidocaine Max S trength 04/01/2020 12:00:00 AM EDT completed [facility] ([facility]) Azelastine HCL (Nasal) Azelastine HCL (Nasal) 03/16/2020 12:00:00 AM E DT active [facility] ([facility] 20 mg 01/29/2020 12:00:00 AM EDT capsule,delayed release (DR/EC) 90 TAKE ONE CAPSULE BY MOUTH EVERY DAY TAKE ONE CAPSULE BY MOUTH EVERY DAY SOLD: 05/28/2020 [facility] 10 mg 07/25/2019 12:00:00 AM EST tablet 30 TAKE ONE TABLET BY MOUTH EVERY DAY TAKE ONE TABLET BY MOUTH EVERY DAY SOLD: 03/16/2020 [facility] 10 mg 07/25/2019 12:00:00 AM EST tablet 30 TAKE ONE TABLET BY MOUTH EVERY DAY TAKE ONE TABLET BY MOUTH EVERY DAY SOLD: 05/28/2020 [facility] Insurance Providers Payer name Policy type / Coverage type Policy ID Covered republican ID Covered republican's relationship to [place] Policy [place] Plan Information [facility] [id number] Self [employer] MEDICAID [id number] S [id number] [employer] MEDICAID [id number] S [id number] [employer] COMMERCIAL [id number] S [id number] [employer] MEDICAID [id number] S [id number] [employer] COMMERCIAL [id number] S [id number] [facility]LESTINE [facility] MEDICAID [id number] S [id number] MEDICAID [id number] SP [id number] [place] [id number] SP [id number] SELF PAY UNAVAILABLE S UNAVAILA BLE [facility] MEDICAID [id number] S [id number] BCBS [facility] [id number] S [id number] ANSI-Medicaid [id number] ANSI-Medicaid [id number] ANSI-Not a Secondary Insurance [id number] ANSI-Medicaid [id number] ANSI-Medicaid [id number] ANSI-Not a Secondary Insurance [id number] ANSI-Medicaid [id number] ANSI-Not a Secondary Insurance [id number] ANSI-Medicaid [id number] ANSI-Medicaid [id number] ANSI-Medicaid [id number] ANSI-Not a Secondary Insurance [id number] ANSI-Not a Secondary Insurance [id number] ANSI-Medicaid [id number] ANSI-Medicaid [id number] [employer] MEDICAID [place] HMO [id number] S [id number] [employer] COMMERCIAL COMM [id number] S [id number] [facility] Community Plan Medigap Part B [id number] Self UNITED HE[employer]CARE [id number] SP [id number] MEDICAID [place] [id number] S [id number] HMO BLUE [id number] SP [id number] UNHC COMMUNITY PLAN MCDO [id number] SP [id number] UNHC COMMUNITY PLAN MCDHMO [id number] SP [id number] UNITED HE[employer]CARE(MCAID) O [id number] S [id number] UNITED [employer] O [id number] S [id number] UNITED [employer] MEDICAID [id number] S [id number] [place] [id number] SP [id number] [facility] MEDICAID [id number] S [id number] Problems, Conditions, and Diagnoses Code Display Name Description Problem Type Effective Dates Data Source(s) N93.9 Abnormal uterine bleeding Abnormal uterine bleeding (A UB) Problem 04/05/2021 12:00:00 AM EDT eCW1 ([facility]) D84.9 Immunodeficiency disorder Immunodeficiency disorder Pr oblem 11/30/2020 12:00:00 AM EDT [facility] ([facility] ) R00.2 Palpitations Palpitations Problem 11/30/2020 12:00:00 A M EDT [facility] ([facility]) N94.9 Disorder of female genital organs Gynecological compla int Problem 11/18/2020 12:00:00 AM EDT eCW1 ([facility]) N93.0 Postcoital bleeding Postcoital and contact bleeding Pr oblem 11/18/2020 12:00:00 AM EDT eCW1 ([facility]) Surgeries/Procedures Procedure Description Date Indications Data Source(s) BRNCDILAT RSPSE SPMTRY PRE&POST-BRNCDILAT ADMN 021 12:00:00 AM EDT MED[facility] ([facility]) BRNCDILAT RSPSE SPMTRY PRE&POST-BRNCDILAT ADMN 020 12:00:00 AM EDT [facility] ([facility]) Results ID Date Data Source PAP REQUEST FOR SERVICE 11/18/2020 12:00:00 AM EDT eCW1 ([facility]) Name Value Range Interpretation Code Description Data Shakila rce(s) Supporting Document(s) Laboratory studies (set) PAP REQUEST FOR SERVICE eCW1 ([facility]) ID Date Data Source [id number] 07/07/2020 12:00:00 AM EST [facility] Name Value Range Interpretation Code Description Data Shakila rce(s) Supporting Document(s) SARS-CoV2 Rapid Antigen Positive [facility] This lab was reported by [facility]. ID Date Data Source [id number] 07/02/2020 12:00:00 AM EST [facility] Name Value Range Interpretation Code Description Data Shakila rce(s) Supporting Document(s) SARS coronavirus 2 Ag Negative [facility] This lab was ordered by [facility] and reported by [facility]. ID Date Data Source [id number] 07/06/2020 02:20:00 PM EST [facility] Name Value Range Interpretation Code Description Data Shakila rce(s) Supporting Document(s) SARS coronavirus 2 RNA Detected [facility] This lab was ordered by [facility] and reported by [facility]. Procedure Social History Code Duration Value Status Description Data Source(s ) Smoking 04/04/2021 12:00:00 AM EDT Never Smoker completed Never S moker eCW1 ([facility]) Smoking 04/04/2021 12:00:00 AM EDT Never Smoker completed Never S moker eCW1 ([facility]) Smoking 04/04/2021 12:00:00 AM EDT Never Smoker completed Never S moker eCW1 ([facility]) Smoking 01/04/2021 12:00:00 AM EDT Never Smoker completed Never S moker eCW1 ([facility]) Smoking 01/04/2021 12:00:00 AM EDT Never Smoker completed Never S moker eCW1 ([facility]) Smoking 01/04/2021 12:00:00 AM EDT Never Smoker completed Never S moker eCW1 ([facility]) Smoking 01/04/2021 12:00:00 AM EDT Never Smoker completed Never S moker eCW1 ([facility]) Smoking 01/04/2021 12:00:00 AM EDT Never Smoker completed Never S moker eCW1 ([facility]) Smoking 11/30/2020 12:00:00 AM EDT Patient has never smoked co mpleted Patient has never smoked MEDENT ([facility] ) Smoking 11/10/2020 12:00:00 AM EDT Never Smoker completed Never S moker eCW1 ([facility]) Smoking 11/10/2020 12:00:00 AM EDT Never Smoker completed Never S moker eCW1 ([facility]) Smoking 11/10/2020 12:00:00 AM EDT Never Smoker completed Never S moker eCW1 ([facility]) Smoking 11/10/2020 12:00:00 AM EDT Never Smoker completed Never S moker eCW1 ([facility]) Smoking 10/08/2020 12:00:00 AM EDT Never Smoker completed Never S moker eCW1 ([facility]) Smoking 10/08/2020 12:00:00 AM EDT Never Smoker completed Never S moker eCW1 ([facility]) Smoking 10/08/2020 12:00:00 AM EDT Never Smoker completed Never S moker eCW1 ([facility]) Smoking 07/20/2020 12:00:00 AM EST Never Smoker completed Never S moker eCW1 ([facility]) Smoking 07/20/2020 12:00:00 AM EST Never Smoker completed Never S moker eCW1 ([facility]) Smoking 07/07/2020 12:00:00 AM EST Patient has never smoked co mpleted Patient has never smoked MEDENT ([facility]) Vital Signs ID Date Data Source UNK Name Value Range Interpretation Code Description Data Source(s) Body weight 147 [lb_av] 147 [lb_av] eCW1 ([facility]) Body height 61.5 [in_i] 61.5 [in_i] eCW1 ([facility]) Body mass index (BMI) [Ratio] 27.32 kg/m2 27.32 kg/m2 eCW1 ([facility]) Heart rate 86 /min 86 /min eCW1 ([facility]) Respiratory rate 16 /min 16 /min eCW1 ([facility]) Body temperature 98.8 [degF] 98.8 [degF] eCW1 ( [facility]) Systolic blood pressure 124 mm[Hg] 124 mm[Hg] e CW1 ([facility]) Diastolic blood pressure 83 mm[Hg] 83 mm[Hg] eCW1 ([facility]) Body weight 147.7 [lb_av] 147.7 [lb_av] eCW1 ([facility]) Body height 61.5 [in_i] 61.5 [in_i] eCW1 ([facility]) Body mass index (BMI) [Ratio] 27.45 kg/m2 27.45 kg/m2 eCW1 ([facility]) Systolic blood pressure 132 mm[Hg] 132 mm[Hg] e CW1 ([facility]) Diastolic blood pressure 80 mm[Hg] 80 mm[Hg] eCW1 ([facility]) Body weight 147.8 [lb_av] 147.8 [lb_av] eCW1 ([facility]) Body height 61.5 [in_i] 61.5 [in_i] eCW1 ([facility]) Body mass index (BMI) [Ratio] 27.47 kg/m2 27.47 kg/m2 eCW1 ([facility]) Heart rate 81 /min 81 /min eCW1 ([facility]) Respiratory rate 16 /min 16 /min eCW1 ([facility]) Body temperature 98.2 [degF] 98.2 [degF] eCW1 ( [facility]) Systolic blood pressure 124 mm[Hg] 124 mm[Hg] e CW1 ([facility]) Diastolic blood pressure 84 mm[Hg] 84 mm[Hg] eCW1 ([facility]) Body height 62 [in_i] 62 [in_i] MEDENT ([facility] 5'2" Body weight 150.12 [lb_av] 150.12 [lb_av] MEDEN T ([facility] Heart rate 70 /min 70 /min MED[facility] ([facility] Respiratory rate 18 /min 18 /min MEDENT ( [facility]) Systolic blood pressure 130 mm[Hg] 130 mm[Hg] M EDENT ([facility]) Diastolic blood pressure 89 mm[Hg] 89 mm[Hg] MED[facility] ([facility] Body mass index (BMI) [Ratio] 27.5 kg/m2 27.5 k g/m2 MED[facility] ([facility] Body weight 151.6 [lb_av] 151.6 [lb_av] eCW1 ([facility]) Body height 61.5 [in_i] 61.5 [in_i] eCW1 ([facility]) Body mass index (BMI) [Ratio] 28.18 kg/m2 28.18 kg/m2 eCW1 ([facility]) Systolic blood pressure 130 mm[Hg] 130 mm[Hg] e CW1 ([facility]) Diastolic blood pressure 80 mm[Hg] 80 mm[Hg] eCW1 ([facility]) Body weight 154 [lb_av] 154 [lb_av] eCW1 ([facility]) Heart rate 73 /min 73 /min eCW1 ([facility]) Respiratory rate 16 /min 16 /min eCW1 ([facility]) Body temperature 98.6 [degF] 98.6 [degF] eCW1 ( [facility]) Systolic blood pressure 134 mm[Hg] 134 mm[Hg] e CW1 ([facility]) Diastolic blood pressure 92 mm[Hg] 92 mm[Hg] eCW1 ([facility]) Body height 61.5 [in_i] 61.5 [in_i] eCW1 ([facility]) Body mass index (BMI) [Ratio] 28.62 kg/m2 28.62 kg/m2 eCW1 ([facility]) Body weight 153 [lb_av] 153 [lb_av] eCW1 ([facility]) Body height 61.5 [in_i] 61.5 [in_i] eCW1 ([facility]) Body mass index (BMI) [Ratio] 28.44 kg/m2 28.44 kg/m2 eCW1 ([facility]) Heart rate 77 /min 77 /min eCW1 ([facility]) Respiratory rate 16 /min 16 /min eCW1 ([facility]) Body temperature 95.9 [degF] 95.9 [degF] eCW1 ( [facility]) Systolic blood pressure 145 mm[Hg] 145 mm[Hg] e CW1 ([facility]) Diastolic blood pressure 98 mm[Hg] 98 mm[Hg] eCW1 ([facility]) Systolic blood pressure 132 mm[Hg] 132 mm[Hg] M EDENT ([facility], [facility]) Diastolic blood pressure 84 mm[Hg] 84 mm[Hg] MEDENT ([facility], [facility]) Heart rate 123 /min 123 /min MEDENT ([facility], [facility]) Respiratory rate 20 /min 20 /min [facility], [facility]) Oxygen saturation in Arterial blood by Pulse oximetry 99 % 99 % [facility] ([facility]) Body temperature 101.3 [degF] 101.3 [degF] MEDE NT ([facility], [facility]) Body weight 149.00 [lb_av] 149.00 [lb_av] MEDEN T ([facility], [facility]) Body height 62 [in_i] 62 [in_i] [facility] 5'2" Body mass index (BMI) [Ratio] 27.2 kg/m2 27.2 k g/m2 [facility] ([facility]) Body temperature 97.9 [degF] 97.9 [degF] MEDENT ([facility]) Systolic blood pressure 134 mm[Hg] 134 mm[Hg] M EDENT ([facility]) Body weight 149.00 [lb_av] 149.00 [lb_av] MEDEN T ([facility]) Diastolic blood pressure 96 mm[Hg] 96 mm[Hg] MEDENT ([facility], [facility]) Heart rate 87 /min 87 /min MEDENT ([facility], [facility]) Respiratory rate 16 /min 16 /min MEDENT ( [facility]) Oxygen saturation in Arterial blood by Pulse oximetry 98 % 98 % [facility], [facility]) Systolic blood pressure 140 mm[Hg] 140 mm[Hg] M EDENT ([facility], [facility]) Diastolic blood pressure 89 mm[Hg] 89 mm[Hg] MEDENT ([facility], [facility]) Heart rate 82 /min 82 /min MEDENT ([facility], [facility]) Respiratory rate 16 /min 16 /min MEDENT ( [facility], [facility]) Oxygen saturation in Arterial blood by Pulse oximetry 98 % 98 % MEDENT ([facility], [facility]) Body temperature 99.3 [degF] 99.3 [degF] MEDENT ([facility], [facility]) Body weight 137.00 [lb_av] 137.00 [lb_av] MEDEN T ([facility], [facility]) Systolic blood pressure 137 mm[Hg] 137 mm[Hg] M EDENT ([facility], [facility]) Diastolic blood pressure 87 mm[Hg] 87 mm[Hg] MEDENT ([facility], [facility]) Heart rate 82 /min 82 /min MEDENT ([facility], [facility]) Oxygen saturation in Arterial blood by Pulse oximetry 99 % 99 % MEDENT ([facility], [facility]) Body temperature 98.4 [degF] 98.4 [degF] MEDENT ([facility], [facility]) Body weight 148.00 [lb_av] 148.00 [lb_av] MEDEN T ([facility], [facility]) Body height 62 [in_i] 62 [in_i] MEDENT ([facility], [facility]) 5'2" Body mass index (BMI) [Ratio] 27.1 kg/m2 27.1 k g/m2 MEDENT ([facility], [facility]) Diastolic blood pressure 85 mm[Hg] 85 mm[Hg] MEDENT ([facility]) Body weight 148.50 [lb_av] 148.50 [lb_av] MEDEN T ([facility]) Body height 62 [in_i] 62 [in_i] MEDENT ([facility]) 5'2" Heart rate 70 /min 70 /min MEDENT ([facility]) Respiratory rate 16 /min 16 /min MEDENT ( [facility]) Systolic blood pressure 126 mm[Hg] 126 mm[Hg] M EDENT ([facility]) Body mass index (BMI) [Ratio] 27.2 kg/m2 27.2 k g/m2 MEDENT ([facility]) Patient Treatment Plan of Care Planned Activity Planned Date Details Description Data Source (s) Ondansetron 4 MG Oral Tablet 10/08/2020 12:00:00 AM EDT eCW1 ([facility]) Ondansetron 4 MG Oral Tablet 10/08/2020 12:00:00 AM EDT eCW1 ([facility]) Ondansetron 4 MG Oral Tablet 10/08/2020 12:00:00 AM EDT eCW1 ([facility])
--- OUTSIDE RECORDS SUMMARY | 2021-04-18 07:11 | CCD ---
Author Author [facility] Organization [facility] Address Unknown Phone Unavailable Care Team Providers Care Assistant Hairstylist Name Role Phone Chris Fischer Unavailable PROBLEMS Type Condition ICD9-CM Code [id number] Code Onset Dates Condition S tatus W/U Status Risk SNOMED Code Notes Problem Mild persistent asthma without complication J45.30 Active confirmed 115417077 Problem Blood pressure elevated without history of HTN R03 .0 Active confirmed 909143615 Problem Non-seasonal allergic rhinitis, unspecified trigger J30.89 Active confirmed 92081767 Problem History of gestational diabetes Z86.32 Active confi rmed 061525404 Problem Mild intermittent asthma without complication J45. 20 Active confirmed 507380884 Problem Gynecological complaint N94.9 Active confirmed 946091720 Problem Frontal sinusitis, unspecified chronicity J32.1 Active confirmed 45375373 Problem Postcoital and contact bleeding N93.0 Active confi rmed 71015021 Problem Acute upper respiratory infection, unspecified J06 .9 Active confirmed 772262689 Problem Migraine with aura and without status migrainosu s, not intractable G43.109 Active confirmed 3307634 Problem Vitamin D deficiency E55.9 Active confirmed 93167011 Problem Acute non-recurrent maxillary sinusitis J01.00 Active confirmed 27371564 Problem GERD without esophagitis K21.9 Active confirmed 943458098 ALLERGIES Allergen (clinical drug ingredient) Drug/Non Drug Allergy do cumented on EMR Reaction Allergy Type Onset Date Status Levaquin Rash Drug Allergy Active Sulfasalazine Sulfa Antibiotics Hives Drug Allergy Ac tive amoxicillin Amoxicillin([facility] Code:[address]-48) Rash Drug Aller gy Active ENCOUNTERS from 1983 to 2021-04-04 Encounter Location Date Provider Diagnosis [facility] Brian MCNEIL [phone] [place] [address] Mar, Chris Fischer Pre-op evaluation Z01.818 ; Postcoital a nd contact bleeding N93.0 ; Mild intermittent asthma without complication J45.20 ; Non-seasonal allergic rhinitis, unspecified trigger J30.89 ; GERD without esophagitis K21.9 ; Elevated BP without diagnosis of hypertension R03.0 ; Migraine with aura and without status migrainosus, not intractable G43.109 ; Impaired fasting glucose R73.01 and Abnormal thyroid blood test R79.89 IMMUNIZATIONS Vaccine Route Administration Date Status Pfizer [...] Notes Total Score: 0 Interpretation: Alcohol Education Christianity: Question Answer Notes Christianity 03 Zoroastrian Drug and Alcohol Question Answer Notes Total [...] FOR REFERRAL No Information VITAL SIGNS Weight 147 lbs Mar, Height 61.5 in Mar, BMI 27.32 kg/m2 Mar, Heart Rate 86 /min Mar, Respiratory Rate 16 /min Mar, Temperature 98.8 degrees Fahrenheit Mar, Oximetry 98 Mar, Blood pressure systolic 124 mm Hg Mar, Blood pressure diastolic 83 mm Hg Mar, MEDICATIONS Medication SIG (Take, [...] Information RESULTS No Results REASON FOR VISIT ROBOTIC ASSISTED LAPAROSCOPIC HYSTERECTOMY DR RITCHIE MEDICAL (GENERAL) HISTORY Type Description Date Medical History Asthma Medical History Allergies Medical History Endometriosis Surgical History Tubal ligation 2010 Hospitalization History Childbirth 2006 Hospitalization History Childbirth 2011 Goals Section No Information Health Concerns No Information MEDICAL EQUIPMENT No Information MENTAL STATUS No Information FUNCTIONAL STATUS No Information ASSESSMENTS Encounter Date Diagnosis Assessment Notes Treatment Notes Treatm ent Clinical Notes Mar, Pre-op evaluation (ICD-10 - Z01.818) She is low risk and medically optimized so she may proceed with surgery as scheduled. Pt is aware and agreeable. Mar, Postcoital and contact bleeding (ICD-10 - N93.0) Cont with Dr Ritchie. Mar, Mild intermittent asthma without complication (I CD-10 - J45.20) Cont symbicort. Overall she is doing okay. 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 Mar, GERD without esophagitis (ICD-10 - K21.9) She is well controlled. Mar, Elevated BP without diagnosis of hypertension (I CD-10 - R03.0) Will cont to monitor every 6 months. Mar, Migraine with aura and witho ut status migrainosus, not intractable (ICD-10 - G43.109) Currently doing mostly well. Mar, Impaired fasting glucose (ICD-10 - R73.01) Will update labs annually. Mar, Abnormal thyroid blood test (ICD-10 - R79.89) Will cont to monitor annually. PLAN OF TREATMENT Medication Medication Name Sig [...] day Treatment Notes Assessment Notes Clinical Notes Pre-op evaluation She is low risk and medically optimized so she may proceed with surgery as scheduled. Pt is aware and agreeable. Postcoital and contact bleeding Cont wit h Dr Ritchie. Mild intermittent asthma without complication Cont symbicort. Overall she is doing okay. 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 GERD without esophagitis She is well con trolled. Elevated BP without diagnosis of hypertension Will cont to monitor every 6 months. Migraine with aura and without status migrainosus, not intra ctable Currently doing mostly well. Impaired fasting glucose Will update lab s annually. Abnormal thyroid blood test Will cont to monitor annually. Next Appt Details as scheduled Reason: Provider Name:Sophie Ritchie, 2021-04-18 0 8:30:00 AM, [address] [facility], , [place], [address], Provider Name:Sophie Ritchie, 2021-05-03 0 8:20:00 AM, [address] [facility], , [place], [address], Provider Name:Sophie Annalisa Cowann, 2021-05-31 0 8:20:00 AM, [address] [facility], , [place], [address], Provider Name:Chris Fischer, 11:00:00 AM, [address] [place] [address], , [place], [address], Insurance Providers Payer Name Payer Address Payer Phone Insured Name Patient Relati onship to Insured Coverage Start Date Coverage End Date [facility] [employer] [facility] [address] [facility] [phone] EDVIN BLACKWELL
--- OUTSIDE RECORDS SUMMARY | 2021-04-18 07:11 | CCD ---
Author Author [facility] Organization [facility] Address Unknown Phone Unavailable Care Team Providers Care Commercial Finance Manager Name Role Phone Chris Fischer Unavailable PROBLEMS Type Condition ICD9-CM Code ICL79-LE Code Onset Dates Condition S tatus W/U Status Risk SNOMED Code Notes Problem Mild persistent asthma without complication J45.30 Active confirmed 241590060 Problem Blood pressure elevated without history of HTN R03 .0 Active confirmed 050588785 Problem Non-seasonal allergic rhinitis, unspecified trigger J30.89 Active confirmed 79459197 Problem History of gestational diabetes Z86.32 Active confi rmed 098238115 Problem Mild intermittent asthma without complication J45. 20 Active confirmed 013361666 Problem Gynecological complaint N94.9 Active confirmed 414219436 Problem Frontal sinusitis, unspecified chronicity J32.1 Active confirmed 34776963 Problem Postcoital and contact bleeding N93.0 Active confi rmed 15389782 Problem Acute upper respiratory infection, unspecified J06 .9 Active confirmed 961839989 Problem Migraine with aura and without status migrainosu s, not intractable G43.109 Active confirmed 1798172 Problem Vitamin D deficiency E55.9 Active confirmed 00013909 Problem Acute non-recurrent maxillary sinusitis J01.00 Active confirmed 47768791 Problem GERD without esophagitis K21.9 Active confirmed 747323515 ALLERGIES Allergen (clinical drug ingredient) Drug/Non Drug Allergy do cumented on EMR Reaction Allergy Type Onset Date Status Levaquin Rash Drug Allergy Active Sulfa (for allergy use only) Hives Drug Allergy Active amoxicillin Amoxicillin([facility] Code:[address]-23) Rash Drug Aller gy Active ENCOUNTERS from 1983 to 2021-02-09 Encounter Location Date Provider Diagnosis [facility] Lorri ZHANG [phone] [place] [address] Jan, 2021 Chris Amado IMMUNIZATIONS Vaccine Route Administration Date Status Pneumococcal Adult 0.5mL Pneumovax 23 IM Intramuscular [...] Education Quaker: Question Answer Notes Quaker 03 Baptism Sexual Hx: Question Answer Notes Had sex in the last 12 months (vaginal, oral, or anal)? Yes LMP: 11/11/2016 Have you ever had an STD? No with Men only Use protection? No Drug and Alcohol Question Answer Notes Total [...] Notes Start Da te End Date Status Loratadine 10 MG 1 tablet Orally Once a day for 30 days Active Multi For Her - Orally Daily Active Mirena (52 MG) 20 MCG/24HR Intrauterine Active Maxalt 10 MG 1 tablet as needed one time Orally Once a day as needed- may repeat in 1-2 hours for 30 day(s) Activ e Singulair 10 MG 1 tablet Orally Once a day Active Eye Drop Delivery Aid Act muarisio Fluticasone Propionate 50 MCG/ACT 1 spray in each nostril Nasally bid Active Symbicort 80-4.5 MCG/ACT 2 puffs Inhalation Once a day Active Omeprazole 20 MG 1 capsule 30 minutes before morning meal Orally On ce a day Active ProAir HFA 108 (90 Base) MCG/ACT 2 puffs as needed Inh alation qid prn for 30 Days Active Acetaminophen 325 MG 2 tablets as needed Orally every 6 hrs Active PROCEDURES No Information RESULTS No Results REASON FOR VISIT No Information MEDICAL (GENERAL) HISTORY Type Description Date Medical History Asthma Medical History Allergies Medical History Endometriosis Surgical History Tubal ligation 2010 Hospitalization History Childbirth 2006 Hospitalization History Childbirth 2010 Goals Section No Information Health Concerns No Information MEDICAL EQUIPMENT No Information MENTAL STATUS No Information FUNCTIONAL STATUS No Information ASSESSMENTS No Information PLAN OF TREATMENT Medication Medication Name Sig Start Date Stop Date Loratadine 10 MG 1 tablet Orally Once a day for 30 days Omeprazole 20 MG 1 capsule 30 minutes before morning meal Orally Once a day ProAir HFA 108 (90 Base) MCG/ACT 2 puffs as needed Inh alation qid prn for 30 Days Symbicort 80-4.5 MCG/ACT 2 puffs Inhalation Once a day Fluticasone Propionate 50 MCG/ACT 1 spray in each nostril Nasall y bid Singulair 10 MG 1 tablet Orally Once a day Next Appt Details Provider Name:Sophie Ritchie, 2021-04-01 1 2:00:00 AM, [address] [place] [address] , [place], [address], Provider Name:Chris Fischer, 09:00:00 AM, [address] [place] [address], , [place], [address], Provider Name:Sophie Ritchie, 2021-04-18 0 8:30:00 AM, [address] [facility] [phone], [place], [address], Provider Name:Sophie Ritchie 2021-05-03 0 8:20:00 AM, [address] [facility] [phone], [place], [address], Provider Name:Sophie Ritchie, 2021-05-31 0 8:20:00 AM, [address] [facility], , [place], [address], Provider Name:Chrishortencia Graveselvirakristen, 11:00:00 AM, [address] [place] [address], , [place], [address], Insurance Providers Payer Name Payer Address Payer Phone Insured Name Patient Relati onship to Insured Coverage Start Date Coverage End Date [facility] [employer] [facility] [address] [facility] [phone] EDVIN BLACKWELL
--- OUTSIDE RECORDS SUMMARY | 2021-04-18 07:11 | CCD ---
Author Author [facility] Organization [facility] Address Unknown Phone Unavailable Care Team Providers Care Virtual Reality Specialist Name Role Phone Chris Fischer Unavailable PROBLEMS Type Condition ICD9-CM Code ALX78-GX Code Onset Dates Condition S tatus W/U Status Risk SNOMED Code Notes Problem Mild persistent asthma without complication J45.30 Active confirmed 455475549 Problem Blood pressure elevated without history of HTN R03 .0 Active confirmed 366358136 Problem Non-seasonal allergic rhinitis, unspecified trigger J30.89 Active confirmed 41075366 Problem History of gestational diabetes Z86.32 Active confi rmed 874447335 Problem Mild intermittent asthma without complication J45. 20 Active confirmed 148601068 Problem Gynecological complaint N94.9 Active confirmed 515032362 Problem Frontal sinusitis, unspecified chronicity J32.1 Active confirmed 10472055 Problem Postcoital and contact bleeding N93.0 Active confi rmed 30650204 Problem Acute upper respiratory infection, unspecified J06 .9 Active confirmed 454166345 Problem Migraine with aura and without status migrainosu s, not intractable G43.109 Active confirmed 0368341 Problem Vitamin D deficiency E55.9 Active confirmed 25331405 Problem Acute non-recurrent maxillary sinusitis J01.00 Active confirmed 94536767 Problem GERD without esophagitis K21.9 Active confirmed 154382016 ALLERGIES Allergen (clinical drug ingredient) Drug/Non Drug Allergy do cumented on EMR Reaction Allergy Type Onset Date Status Levaquin Rash Drug Allergy Active Sulfa (for allergy use only) Hives Drug Allergy Active amoxicillin Amoxicillin([facility] Code:[address]-38) Rash Drug Aller gy Active ENCOUNTERS from 1983 to 2021-03-23 Encounter Location Date Provider Diagnosis [facility] Brian ZHANG [phone] [place] [address] 27 Feb, 2021 Chris Amado IMMUNIZATIONS Vaccine Route Administration [...] Notes Total Score: 0 Interpretation: Alcohol Education Christian: Question Answer Notes Christian 03 Episcopal Sexual Hx: Question Answer Notes Had sex [...] Notes Start Da te End Date Status Symbicort 80-4.5 MCG/ACT 2 puffs Inhalation Once a day Active Multi For Her - Orally Daily Active Mirena (52 MG) 20 MCG/24HR Intrauterine Active Maxalt 10 MG 1 tablet as needed one time Orally Once a day as needed- may repeat in 1-2 hours for 30 day(s) Activ e Singulair 10 MG 1 tablet Orally Once a day Active Eye Drop Delivery Aid Act maurisio Fluticasone Propionate 50 MCG/ACT 1 spray in each nostril Nasally bid Active Omeprazole 20 MG TAKE ONE CAPSULE BY MOUTH EVERY DAY for 90 Active Loratadine 10 MG 1 tablet Orally Once a day for 30 days Active ProAir HFA 108 (90 Base) MCG/ACT 2 puffs as needed Inh alation qid prn for 30 Days Active Acetaminophen 325 MG 2 tablets as needed Orally every 6 hrs Active PROCEDURES No Information RESULTS No Results REASON FOR VISIT refill MEDICAL (GENERAL) HISTORY Type Description Date Medical [...] Orally Once a day for 30 days ProAir HFA 108 (90 Base) MCG/ACT 2 puffs as needed Inh alation qid prn for 30 Days Omeprazole 20 MG TAKE ONE CAPSULE BY MOUTH EVERY DAY for 90 Fluticasone Propionate 50 MCG/ACT 1 spray in each nostril Nasall y bid Singulair 10 MG 1 tablet Orally Once a day Next Appt Details Provider Name:Sophie Ritchie, 2021-04-01 1 2:00:00 AM, [address] [place] [address] , [place], [address], Provider Name:Chris Fischer, 09:00:00 AM, [address] [place] [address], , [place], [phone], Provider Name:Sophie Ritchie 2021-04-18 0 8:30:00 AM, [address] [place] [address] , [place], [address], Provider Name:Sophie Ritchie 2021-05-03 0 8:20:00 AM, [facility] [phone], [place], [address], Provider Name:Sophie Ritchie, 2021-05-31 0 8:20:00 AM, [address] [facility], , [place], [address], Provider Name:Chrishortencia Fischer, 11:00:00 AM, [address] [place] [address], , [place], [address], Insurance Providers Payer Name Payer Address Payer Phone Insured Name Patient Relati onship to Insured Coverage Start Date Coverage End Date [facility] [employer] [facility] [address] [facility] [phone] EDVIN BLACKWELL
[2021-04-18] MEDS ORDERED: FLUC150T PO (07:37)
[2021-04-18] MEDS ORDERED: BUPIVACAINE HCL 0.25% 30ML VIAL As Ordered ONE (07:45)
[2021-04-18] MEDS ORDERED: propofoL 200 MG/20 ML VIAL As Ordered ONE ×2 (08:09→10:02)
[2021-04-18] MEDS ORDERED: ROCURONIUM BROMIDE 50 MG/5 ML VIAL As Ordered ONE (08:09)
[2021-04-18] MEDS ORDERED: LIDOCAINE 2% 100MG/5ML SDV (FOR ANES.) As Ordered ONE ×2 (08:09→08:11)
[2021-04-18] MEDS ORDERED: ONDANSETRON 4MG/2ML VIAL As Ordered ONE ×2 (08:10→10:27)
[2021-04-18] MEDS ORDERED: MIDAZOLAM INJ 2MG/2ML VIAL (J2250 PER 1MG) As Ordered ONE (08:10)
[2021-04-18] MEDS ORDERED: fentaNYL 100 MCG/2 ML INJECTION (J3010) As Ordered ONE ×2 (08:10→09:20)
[2021-04-18] MEDS ORDERED: dexameTHASONE 4 MG/ML 1ML VIAL (J1100 PER 1MG) As Ordered ONE (08:10)
[2021-04-18 08:28] LABS: HEMATOCRIT 41.1 % (36.0-47.0); HEMOGLOBIN 13.1 g/dl (12.0-15.5); MEAN CORPUSCULAR HEMOGLOBIN 26.4 pg (27.0-33.0); MEAN CORPUSCULAR HGB CONC 31.9 g/dl (32.0-36.5); MEAN CORPUSCULAR VOLUME 82.9 fl (80.0-96.0); PLATELET COUNT, AUTOMATED 273 10^3/uL (150-450); RED BLOOD COUNT 4.96 10^6/uL (4.00-5.40); WHITE BLOOD COUNT 6.8 10^3/uL (4.0-10.0)
[2021-04-18] MEDS ORDERED: ACETAMINOPHEN 1000MG 100ML IV BTL (OFIRMEV) (J0131 PER 10MG) As Ordered ONE (10:11)
[2021-04-18] MEDS ORDERED: METOCLOPRAMIDE INJ 10MG/2ML VIAL (J2765 PER 1) As Ordered ONE (10:12)
[2021-04-18] MEDS ORDERED: KETOROLAC 60MG 2ML VIAL As Ordered ONE (10:13)
[2021-04-18] MEDS ORDERED: SUGAMMADEX SODIUM 500 MG/5 ML VIAL (BRIDION) As Ordered ONE (10:16)
[2021-04-18] MEDS ORDERED: fentaNYL 100 MCG/2 ML INJECTION (J3010) IV PRN (10:45)
[2021-04-18] MEDS ORDERED: oxyCODONE 5MG TAB PO PRN (10:45)
[2021-04-18] MEDS ORDERED: ONDANSETRON 4MG/2ML VIAL IV PRN (10:45)
[2021-04-18] MEDS ORDERED: PERCOCET 5MG/325MG TAB PO PRN (10:45)
[2021-04-18] MEDS ORDERED: LR 1,000 ML IV SCH (10:45)
--- NOTE | 2021-04-18 11:03 | ROOPDOC ---
[facility] Report Of Operation Report of Operation DATE OF PROCEDURE: 04/18/21 PREPROCEDURE DIAGNOSES: 1. Abnormal uterine bleeding. 2. Chronic pelvic pain POSTPROCEDURE DIAGNOSES: 1. Abnormal uterine bleeding. 2. Chronic pelvic pain PROCEDURES PERFORMED: 1. Robotic-assisted laparoscopic hysterectomy. 2. Bilateral salpingectomy. 3. Cystoscopy. SURGEON: Ilana Ritchie MD WINERY WORKER: CAROLINA Linares ANESTHESIA: General endotracheal anesthesia. ESTIMATED BLOOD LOSS: 50 mL. INTRAVENOUS FLUIDS: 1200 mL lactated Ringer solution. URINE OUTPUT: 50 mL. PREPROCEDURE ANTIBIOTICS: 2g Ancef OPERATIVE FINDINGS: The patient with normal-appearing bilateral adnexa and uterus CYSTOSCOPIC FINDING: Normal bladder mucosa, no foreign objects. Bilateral ureteral jets were observed. SPECIMEN: Uterus, cervix, bilateral fallopian tubes DESCRIPTION OF PROCEDURE: After informed consent was obtained and written consent was reviewed, the patient was brought to the operating room, where general endotracheal anesthesia was obtained. She was then placed in lithotomy position, was prepped and draped in a normal sterile fashion. A time-out in the operating room was then performed, identifying the patient, procedure to be performed, as well as drug allergies. A speculum was then placed, revealing the cervix. Mirena IUD was removed . The anterior and posterior aspects of the cervix were stitched with a 0 Vicryl. The uterus was then sounded to 11 cm. A extra-large VCare uterine manipulator was then advanced through the cervical os for means to manipulate the uterus. The cervical cap was applied over the cervix, as well as the vaginal sleeve applied into the vagina. The speculum was removed from the patients vagina. A Connor catheter was then placed and set to gravity. Gloves were changed, and attention was turned to the patients abdomen, where a Veress needle was placed through the umbilicus. A pneumoperitoneum was then obtained with CO2 gas. The supraumbilical area was infused with 0.25% Marcaine. An incision was made in this area, and a 8 mm trocar and sleeve was advanced through this incision. The laparoscope was then replaced, revealing intra-abdominal placement. Three additional port sites were placed, two to the left side of the patient's abdomen and one to the right. These areas was infused with 0.25% Marcaine. Each one of these areas, incisions were made, and 8 mm trocars and sleeves advanced through each one of these incisions under direct visualization. Next, the da Domo was then docked, utilizing a camera arm and two operative arms. The patient's abdomen was then surveyed with the above-noted finding. Bilateral salpingectomies were then performed. The fallopian tubes' mesosalpinx was cauterized and ligated with hemostasis noted. Next, the uteroovarian ligaments bilateral were cauterized and ligated with good hemostasis noted. The round ligaments bilaterally were cauterized and ligated with good hemostasis noted. The anterior and posterior aspects of broad ligaments were . The anterior leaf of the broad ligament was cauterized and ligated and dissected along the bladder, creating a bladder flap. The remainder of the broad and cardinal ligaments were then cauterized and ligated with good hemostasis noted. The uterine arteries were skeletonized bilaterally and were cauterized and transected with good hemostasis noted. Anterior and posterior colpotomies were made using monopolar scissors. The uterus was then brought out through the vaginal incision. The surgical sites were inspected and noted to be hemostatic. The vaginal cuff was then closed using 2-0 V-Loc system in a running fashion. Jamar was then applied over the surgical field. The pneumoperitoneum was then released. Next, the cystoscopy was then performed. Utilizing a 70-degree cystoscope, it was advanced transurethrally through the bladder. The bladder was surveyed, showing normal bladder mucosa, no foreign bodies. The bilateral ureteral jets were observed. The cystoscope was then removed. The bladder was then drained. Gloves were changed. Attention was then turned to the patients abdomen, where all four port sites were closed with 4-0 Monocryl and dressed with Dermabond. The patient was then taken out of lithotomy position and was awakened from general anesthesia and taken to recovery in stable condition. Counts were correct. Arlet Cerda, my surgical supervisor, played a central role in the operation. She assisted with port placement, tissue retraction and identification, as well as wound closure. ILANA RITCHIE MD. Apr 18, 2021 11:03
[2021-04-18 13:00] VITALS: BP 135/80
[2021-04-18] MEDS ORDERED: KETOROLAC 30 MG/ML 1ML VIAL IV SCH (16:00)
== END 2021-04-18 14:22 | disposition home or self-care (01) ==
LOC: M SDC 07:05
PROVIDERS: ATTEND Obstetrics & Gynecology
DX: D25.1 Intramural leiomyoma of uterus (principal); N72 Inflammatory disease of cervix uteri; N93.9 Abnormal uterine and vaginal bleeding, unspecified; R10.2 Pelvic and perineal pain; N80.9 Endometriosis, unspecified; K21.9 Gastro-esophageal reflux disease without esophagitis; G43.909 Migraine, unspecified, not intractable, without status migrainosus; J45.909 Unspecified asthma, uncomplicated; Z88.0 Allergy status to penicillin; Z88.1 Allergy status to other antibiotic agents; Z88.2 Allergy status to sulfonamides; Z79.899 Other long term (current) drug therapy; Z79.51 Long term (current) use of inhaled steroids
CPT/HCPCS: 36415; 58571; 81025; 85027; 86850; 86900; 86901; 88307; J0131; J0690; J1100; J1885; J2250; J2405; J2765; J3010; S2900

== ENCOUNTER → 2021-05-27 | Outpatient (REF) | payer OTHER ==
[~2021-05-27] MED LIST changes: -DESFLURANE 240 ML INHALANT As Ordered ONE; +FLUC150T PO; -LR 1,000 ML IV ONE; -ceFAZolin SOD 2 GM in IV 1 EA IV ONE
== END ==
LOC: M SFHCCLAY 08:15
PROVIDERS: ATTEND Physician Assistant
DX: R09.81 Nasal congestion (principal)

== ENCOUNTER → 2021-11-25 | Outpatient (CLI) | payer OTHER ==
[~2021-11-25] MED LIST changes: -FLUC150T PO; +FLUC150T9 PO; -MONT10TA10 PO; +MONT10TA97 PO; +OMEP-173 PO; -OMEP-218 PO
== END ==
LOC: M WHC 12:17
PROVIDERS: ATTEND Obstetrics & Gynecology
DX: Z12.39 Encounter for other screening for malignant neoplasm of breast (principal); R92.8 Other abnormal and inconclusive findings on diagnostic imaging of breast
CPT/HCPCS: 76642; 77066; G0279

== ENCOUNTER → 2021-12-29 | Outpatient (CLI) | payer OTHER ==
[~2021-12-29] MED LIST changes: +**SFHN** LIDOCAINE 1% MDV 20ML VIAL ONE; +**SFHN** SODIUM BICARBONATE 8.4% 10MEQ 10ML VIAL ONE
[2021-12-29 15:03] VITALS: BP 116/78
== END ==
LOC: M WHCPRO 13:24
PROVIDERS: ATTEND Surgery
DX: R92.8 Other abnormal and inconclusive findings on diagnostic imaging of breast (principal); N63.42 Unspecified lump in left breast, subareolar

== ENCOUNTER → 2022-01-10 | Outpatient (REF) | payer OTHER ==
[~2022-01-10] MED LIST changes: -**SFHN** LIDOCAINE 1% MDV 20ML VIAL ONE; -**SFHN** SODIUM BICARBONATE 8.4% 10MEQ 10ML VIAL ONE
[2022-01-10 16:32] LABS: FREE T4 0.7 NG/DL (0.76-1.46); THYROID STIMULATING HORMONE 0.007 uIU/ML (0.358-3.740)
== END ==
LOC: M SFHCCLAY 11:10
PROVIDERS: ATTEND Physician Assistant
DX: E04.9 Nontoxic goiter, unspecified (principal)

== ENCOUNTER → 2022-01-31 | Outpatient (CLI) | payer OTHER ==
[~2022-01-31] MED LIST changes: +LIDOCAINE 1% MDV 20ML VIAL As Ordered ONE
[2022-01-31 10:04] VITALS: BP 155/95
== END ==
LOC: M IRPRO 09:00
PROVIDERS: ATTEND Otolaryngology
DX: D44.0 Neoplasm of uncertain behavior of thyroid gland (principal)

== ENCOUNTER → 2022-02-20 | Outpatient (REF) | payer OTHER ==
[~2022-02-20] MED LIST changes: -LIDOCAINE 1% MDV 20ML VIAL As Ordered ONE
[2022-02-20 18:43] LABS: FREE T4 0.91 NG/DL (0.76-1.46); THYROID STIMULATING HORMONE 0.007 uIU/ML (0.358-3.740)
[2022-02-20 19:14] LABS: PROLACTIN 7.8 NG/ML
[2022-02-20 19:15] LABS: THYROID PEROXIDASE ANTIBODY 29.1 U/ML (<60.0); TOTAL T3 156.6 NG/DL (60.0-181.0)
== END ==
LOC: M LABDRAWC 17:09
PROVIDERS: ATTEND Nurse Practitioner Family
DX: R94.6 Abnormal results of thyroid function studies (principal)

== ENCOUNTER → 2022-03-13 | Outpatient (REF) | payer OTHER ==
[2022-03-13 17:32] LABS: BASO # 0.1 10^3/uL (0.0-0.2); BASO % 0.8 % (0.0-1.0); EOS # 0.2 10^3/uL (0.0-0.5); EOS % 2.8 % (0.0-3.0); HEMATOCRIT 44.2 % (36.0-47.0); HEMOGLOBIN 13.8 g/dl (12.0-15.5); LYMPH # 2.1 10^3/uL (1.5-5.0); LYMPH % 29.3 % (24.0-44.0); MEAN CORPUSCULAR HGB CONC 31.2 g/dl (32.0-36.5); MEAN CORPUSCULAR VOLUME 83.4 fl (80.0-96.0); MONO # 0.4 10^3/uL (0.0-0.8); MONO % 5.4 % (2.0-8.0); NEUTROPHILS # 4.5 10^3/uL (1.5-8.5); NEUTROPHILS % 61.4 % (36.0-66.0); PLATELET COUNT, AUTOMATED 324 10^3/uL (150-450); WHITE BLOOD COUNT 7.3 10^3/uL (4.0-10.0)
[2022-03-13 17:40] LABS: ALT/SGPT 15 U/L (12-78); BILIRUBIN,TOTAL 0.4 MG/DL (0.2-1.0); BLOOD UREA NITROGEN 11 MG/DL (7-18); CALCIUM LEVEL 9.4 MG/DL (8.5-10.1); CARBON DIOXIDE LEVEL 28 MEQ/L (21-32); CHLORIDE LEVEL 107 MEQ/L (98-107); CREATININE FOR GFR 0.71 MG/DL (0.55-1.30); GLOMERULAR FILTRATION RATE > 60.0 (>60); GLUCOSE, FASTING 96 MG/DL (70-100); POTASSIUM SERUM 4.5 MEQ/L (3.5-5.1); SODIUM LEVEL 137 MEQ/L (136-145); TOTAL PROTEIN 7.1 GM/DL (6.4-8.2)
[2022-03-13 17:49] LABS: HEMOGLOBIN A1c 5.8 %
== END ==
LOC: M SFHCCLAY 09:31
PROVIDERS: ATTEND Family Medicine
DX: R73.01 Impaired fasting glucose (principal)

== ENCOUNTER → 2022-03-21 | Outpatient (CLI) | payer OTHER | LOC: M CLY 09:28 | PROVIDERS: ATTEND Family Medicine | DX: M25.561 Pain in right knee (principal) ==

== ENCOUNTER → 2022-03-23 | Outpatient (CLI) | payer OTHER | LOC: M EKG 12:04 | PROVIDERS: ATTEND Anesthesiology | DX: E04.1 Nontoxic single thyroid nodule (principal) ==

== ENCOUNTER → 2022-03-23 | Outpatient (CLI) | payer OTHER | LOC: M LABSMTC 11:30 | PROVIDERS: ATTEND Anesthesiology | DX: Z01.818 Encounter for other preprocedural examination (principal); Z11.52 Encounter for screening for COVID-19 ==

== ENCOUNTER 2022-03-28 10:46 | Day surgery (SDC) | payer OTHER ==
[~2022-03-28] VITALS: Ht 157.5 cm; Wt 64.4 kg
[~2022-03-28 10:46] MED LIST changes: +dexameTHASONE 4 MG/ML 1ML VIAL (J1100 PER 1MG) IV ONE
[2022-03-28] MEDS ORDERED: LR 1,000 ML IV SCH ×2 (11:20→15:10)
[2022-03-28] MEDS ORDERED: dexameTHASONE 4 MG/ML 1ML VIAL (J1100 PER 1MG) As Ordered ONE (12:42)
[2022-03-28] MEDS ORDERED: propofoL 200 MG/20 ML VIAL As Ordered ONE (12:42)
[2022-03-28] MEDS ORDERED: MIDAZOLAM INJ 2MG/2ML VIAL (J2250 PER 1MG) As Ordered ONE (12:42)
[2022-03-28] MEDS ORDERED: ONDANSETRON 4MG 2ML VIAL As Ordered ONE (12:42)
[2022-03-28] MEDS ORDERED: SUGAMMADEX SODIUM 500 MG/5 ML VIAL (BRIDION) As Ordered ONE (12:42)
[2022-03-28] MEDS ORDERED: KETOROLAC 60MG 2ML VIAL As Ordered ONE (12:42)
[2022-03-28] MEDS ORDERED: ROCURONIUM BROMIDE 50 MG/5 ML VIAL As Ordered ONE (12:42)
[2022-03-28] MEDS ORDERED: LIDOCAINE 2% 100MG/5ML SDV (FOR ANES.) As Ordered ONE (12:42)
[2022-03-28] MEDS ORDERED: fentaNYL 100 MCG/2 ML INJECTION As Ordered ONE (12:42)
[2022-03-28] MEDS ORDERED: METOCLOPRAMIDE INJ 10MG/2ML VIAL (J2765 PER 1) As Ordered ONE (12:53)
[2022-03-28] MEDS ORDERED: LIDOCAINE W/EPINEPHRINE 1% 20ML VIAL As Ordered ONE (12:55)
[2022-03-28] MEDS ORDERED: SCOPOLAMINE 1MG TRANSDERMAL PATCH TOP ONE (13:00)
[2022-03-28] MEDS ORDERED: oxyCODONE 5MG TAB PO PRN (15:10)
[2022-03-28] MEDS ORDERED: fentaNYL 100 MCG/2 ML INJECTION IV PRN (15:10)
[2022-03-28] MEDS ORDERED: HYDROMORPHONE HCL 0.5 MG/ 0.5 ML SYRINGE (J1170 PER 1) IV PRN (15:10)
[2022-03-28] MEDS ORDERED: ONDANSETRON 4MG 2ML VIAL IV PRN (15:10)
[2022-03-28] MEDS ORDERED: METOCLOPRAMIDE INJ 10MG/2ML VIAL (J2765 PER 1) IV PRN (15:10)
[2022-03-28 17:07] VITALS: BP 136/80
== END 2022-03-28 17:08 | disposition home or self-care (01) ==
LOC: M SDC 10:46
PROVIDERS: ATTEND Otolaryngology
DX: C73 Malignant neoplasm of thyroid gland (principal); J45.909 Unspecified asthma, uncomplicated; Z88.0 Allergy status to penicillin; Z88.1 Allergy status to other antibiotic agents; Z88.2 Allergy status to sulfonamides
CPT/HCPCS: 60220; 88307; J1100; J1885; J2250; J2405; J2765; J3010

== ENCOUNTER → 2022-04-26 | Outpatient (REF) | payer OTHER ==
[~2022-04-26] MED LIST changes: -dexameTHASONE 4 MG/ML 1ML VIAL (J1100 PER 1MG) IV ONE
[2022-04-26 20:14] LABS: FREE T4 0.8 NG/DL (0.76-1.46); THYROID STIMULATING HORMONE 3.12 uIU/ML (0.358-3.740)
== END ==
LOC: M LAB REF 17:21 → M LABDRAWC 17:21
PROVIDERS: ATTEND Nurse Practitioner Family
DX: R94.6 Abnormal results of thyroid function studies (principal)

== ENCOUNTER → 2022-05-01 | Outpatient (CLI) | payer OTHER | LOC: M CLY 14:47 | PROVIDERS: ATTEND Family Medicine | DX: M79.672 Pain in left foot (principal) ==

== ENCOUNTER → 2022-07-04 | Outpatient (CLI) | payer OTHER | LOC: M WHC 07:21 | PROVIDERS: ATTEND Nurse Practitioner Women's Health | DX: D24.1 Benign neoplasm of right breast (principal); D24.2 Benign neoplasm of left breast ==

== ENCOUNTER → 2022-07-11 | Outpatient (REF) | payer OTHER ==
[2022-07-11 12:13] LABS: THYROID STIMULATING HORMONE 3.892 uIU/ML (0.55-4.78)
[2022-07-11 12:14] LABS: FREE T4 0.96 NG/DL (0.89-1.76)
== END ==
LOC: M LABDRAWC 11:13
PROVIDERS: ATTEND Nurse Practitioner Family
DX: R94.6 Abnormal results of thyroid function studies (principal)

== ENCOUNTER → 2022-10-23 | Outpatient (REF) | payer OTHER ==
[2022-10-23 19:18] LABS: THYROID STIMULATING HORMONE 1.826 uIU/ML (0.55-4.78)
[2022-10-23 19:19] LABS: FREE T4 0.92 NG/DL (0.89-1.76)
== END ==
LOC: M LABDRAWC 17:10
PROVIDERS: ATTEND Internal Medicine
DX: R94.6 Abnormal results of thyroid function studies (principal)

== ENCOUNTER → 2022-10-23 | Outpatient (REF) | payer OTHER ==
[2022-10-23 18:41] LABS: ALBUMIN 3.8 G/DL (3.2-5.2); ALKALINE PHOSPHATASE 48 U/L (46-116); ALT/SGPT < 9 U/L (7.0-40); AST/SGOT 13 U/L (<34); BILIRUBIN,TOTAL 0.4 MG/DL (0.3-1.2); BLOOD UREA NITROGEN 12 MG/DL (9-23); CARBON DIOXIDE LEVEL 25 MMOL/L (20-31); CHLORIDE LEVEL 108 MMOL/L (98-107); CREATININE FOR GFR 0.73 MG/DL (0.55-1.30); GLOMERULAR FILTRATION RATE > 60.0 (>60); GLUCOSE, FASTING 111 MG/DL (60-100); POTASSIUM SERUM 4.2 MMOL/L (3.5-5.1); SODIUM LEVEL 139 MMOL/L (136-145); TOTAL PROTEIN 6.7 G/DL (5.7-8.2)
[2022-10-23 18:43] LABS: TOTAL T3 102.5 NG/DL (60.0-181.0)
[2022-10-23 18:44] LABS: FREE T4 0.91 NG/DL (0.89-1.76); THYROID STIMULATING HORMONE 1.802 uIU/ML (0.55-4.78)
[2022-10-23 19:03] LABS: HEMOGLOBIN A1c 5.5 % (4.0-6.0)
== END ==
LOC: M SFHCCLAY 09:52
PROVIDERS: ATTEND Family Medicine
DX: R73.01 Impaired fasting glucose (principal); C73 Malignant neoplasm of thyroid gland

== ENCOUNTER → 2022-10-31 | Outpatient (CLI) | payer OTHER ==
[2022-10-31 12:58] LABS: BASO # 0.1 10^3/uL (0.0-0.2); BASO % 0.9 % (0.0-1.0); EOS # 0.2 10^3/uL (0.0-0.5); EOS % 2.1 % (0.0-3.0); HEMATOCRIT 42.6 % (36.0-47.0); HEMOGLOBIN 13.5 g/dl (12.0-15.5); MEAN CORPUSCULAR HEMOGLOBIN 26.4 pg (27.0-33.0); MEAN CORPUSCULAR HGB CONC 31.7 g/dl (32.0-36.5); MEAN CORPUSCULAR VOLUME 83.2 fl (80.0-96.0); MONO # 0.4 10^3/uL (0.0-0.8); MONO % 5.2 % (2.0-8.0); NEUTROPHILS # 5.4 10^3/uL (1.5-8.5); NEUTROPHILS % 66.4 % (36.0-66.0); PLATELET COUNT, AUTOMATED 325 10^3/uL (150-450); RED BLOOD COUNT 5.12 10^6/uL (4.00-5.40); WHITE BLOOD COUNT 8.1 10^3/uL (4.0-10.0)
[2022-10-31 13:34] LABS: ERYTHROCYTE SEDIMENTATION RATE 12 mm/hr (0-20)
[2022-11-01 16:09] LABS: ANTINUCLEAR ANTIBODIES DIRECT Negative (Negative)
== END ==
LOC: M WUC 10:51
PROVIDERS: ATTEND Nurse Practitioner Family
DX: M25.441 Effusion, right hand (principal); M79.641 Pain in right hand

== ENCOUNTER → 2023-01-23 | Outpatient (REF) | payer OTHER ==
[2023-01-23 12:11] LABS: FREE T4 0.95 NG/DL (0.89-1.76)
[2023-01-23 12:12] LABS: THYROID STIMULATING HORMONE 1.597 uIU/ML (0.55-4.78)
== END ==
LOC: M SFHCCLAY 08:42
PROVIDERS: ATTEND Family Medicine
DX: E04.1 Nontoxic single thyroid nodule (principal); R79.89 Other specified abnormal findings of blood chemistry

== ENCOUNTER → 2023-06-14 | Outpatient (REF) | payer OTHER ==
[~2023-06-14] MED LIST changes: +LORA-1041 PO; -LORA-674 PO
== END ==
LOC: M SFHCCLAY 11:24
PROVIDERS: ATTEND Physician Assistant
DX: B34.9 Viral infection, unspecified (principal)

== ENCOUNTER → 2023-07-27 | Outpatient (CLI) | payer BC, OTHER, SELFPAY | LOC: M WHC 12:38 | PROVIDERS: ATTEND Nurse Practitioner Women's Health | DX: Z12.31 Encounter for screening mammogram for malignant neoplasm of breast (principal) ==

== ENCOUNTER → 2023-07-27 | Outpatient (REF) | payer BC ==
[2023-07-27 11:48] LABS: HEMATOCRIT 44.3 % (36.0-47.0); HEMOGLOBIN 14.3 g/dl (12.0-15.5); MEAN CORPUSCULAR HEMOGLOBIN 27.2 pg (27.0-33.0); MEAN CORPUSCULAR HGB CONC 32.3 g/dl (32.0-36.5); MEAN CORPUSCULAR VOLUME 84.2 fl (80.0-96.0); PLATELET COUNT, AUTOMATED 354 10^3/uL (150-450); RED BLOOD COUNT 5.26 10^6/uL (4.00-5.40); WHITE BLOOD COUNT 9.5 10^3/uL (4.0-10.0)
[2023-07-27 11:57] LABS: ALKALINE PHOSPHATASE 56 U/L (46-116); ALT/SGPT 12 U/L (7.0-40); AST/SGOT 8 U/L (<34); BILIRUBIN,TOTAL 0.3 MG/DL (0.3-1.2); BLOOD UREA NITROGEN 13 MG/DL (9-23); CALCIUM LEVEL 9.3 MG/DL (8.5-10.1); CARBON DIOXIDE LEVEL 27 MMOL/L (20-31); CHLORIDE LEVEL 104 MMOL/L (98-107); CHOLESTEROL LEVEL 197 MG/DL (<200); CREATININE FOR GFR 0.82 MG/DL (0.55-1.30); GLOMERULAR FILTRATION RATE > 60.0 (>58); GLUCOSE, FASTING 78 MG/DL (60-100); HDL CHOLESTEROL 65.5 MG/DL (>40); LDL CHOLESTEROL 113.5 MG/DL (<100); NON-HDL-C 131.5 MG/DL; POTASSIUM SERUM 4.3 MMOL/L (3.5-5.1); SODIUM LEVEL 137 MMOL/L (136-145); TOTAL PROTEIN 7.4 G/DL (5.7-8.2); TOTAL T3 112.2 NG/DL (60.0-181.0); TRIGLYCERIDES LEVEL 90 MG/DL (<150)
[2023-07-27 11:58] LABS: FREE T4 1.01 NG/DL (0.89-1.76); THYROID STIMULATING HORMONE 2.696 uIU/ML (0.55-4.78)
[2023-07-27 12:09] LABS: HEMOGLOBIN A1c 5.5 % (4.0-6.0)
== END ==
LOC: M SFHCCLAY 08:52
PROVIDERS: ATTEND Family Medicine
DX: C73 Malignant neoplasm of thyroid gland (principal); R79.89 Other specified abnormal findings of blood chemistry; R03.0 Elevated blood-pressure reading, without diagnosis of hypertension; R73.01 Impaired fasting glucose

== ENCOUNTER → 2024-01-25 | Outpatient (REF) | payer BC ==
[2024-01-25 11:52] LABS: BASO # 0.1 10^3/uL (0.0-0.2); BASO % 0.8 % (0.0-1.0); EOS # 0.1 10^3/uL (0.0-0.5); EOS % 1.6 % (0.0-3.0); HEMATOCRIT 41.8 % (36.0-47.0); HEMOGLOBIN 13.2 g/dl (12.0-15.5); LYMPH % 25.8 % (24.0-44.0); MEAN CORPUSCULAR HEMOGLOBIN 26.8 pg (27.0-33.0); MEAN CORPUSCULAR HGB CONC 31.6 g/dl (32.0-36.5); MONO # 0.5 10^3/uL (0.0-0.8); MONO % 6.4 % (2.0-8.0); NEUTROPHILS % 65.1 % (36.0-66.0); PLATELET COUNT, AUTOMATED 309 10^3/uL (150-450); RED BLOOD COUNT 4.92 10^6/uL (4.00-5.40); WHITE BLOOD COUNT 7.6 10^3/uL (4.0-10.0)
[2024-01-25 12:17] LABS: ALBUMIN 3.9 G/DL (3.2-5.2); ALKALINE PHOSPHATASE 54 U/L (46-116); ALT/SGPT 11 U/L (7.0-40); AST/SGOT 9 U/L (<34); BILIRUBIN,TOTAL 0.6 MG/DL (0.3-1.2); BLOOD UREA NITROGEN 12 MG/DL (9-23); CALCIUM LEVEL 8.8 MG/DL (8.5-10.1); CARBON DIOXIDE LEVEL 26 MMOL/L (20-31); CHLORIDE LEVEL 108 MMOL/L (98-107); CREATININE FOR GFR 0.72 MG/DL (0.55-1.30); GLOMERULAR FILTRATION RATE > 60.0 (>58); GLUCOSE, FASTING 84 MG/DL (60-100); POTASSIUM SERUM 4.5 MMOL/L (3.5-5.1); SODIUM LEVEL 139 MMOL/L (136-145); TOTAL PROTEIN 6.6 G/DL (5.7-8.2)
[2024-01-25 12:19] LABS: FREE T4 0.98 NG/DL (0.89-1.76)
[2024-01-25 12:20] LABS: THYROID STIMULATING HORMONE 2.588 uIU/ML (0.55-4.78)
[2024-01-25 12:45] LABS: HEMOGLOBIN A1c 5.4 % (4.0-6.0)
== END ==
LOC: M SFHCCLAY 09:17
PROVIDERS: ATTEND Family Medicine
DX: T14.8XXA Other injury of unspecified body region, initial encounter (principal); R73.01 Impaired fasting glucose; R79.89 Other specified abnormal findings of blood chemistry

== ENCOUNTER → 2024-06-09 | Outpatient (REF) | payer BC ==
[2024-06-09 18:49] LABS: HEMATOCRIT 42.7 % (36.0-47.0); HEMOGLOBIN 13.8 g/dl (12.0-15.5); MEAN CORPUSCULAR HGB CONC 32.3 g/dl (32.0-36.5); MEAN CORPUSCULAR VOLUME 83.4 fl (80.0-96.0); PLATELET COUNT, AUTOMATED 151 10^3/uL (150-450); RED BLOOD COUNT 5.12 10^6/uL (4.00-5.40); WHITE BLOOD COUNT 4.7 10^3/uL (4.0-10.0)
[2024-06-09 18:57] LABS: URIC ACID 4.4 MG/DL (3.1-7.8)
[2024-06-09 18:59] LABS: C REACTIVE PROTEIN QUANTITATIV < 0.50 MG/DL (<1.0)
[2024-06-09 19:00] LABS: ALKALINE PHOSPHATASE 53 U/L (35-104); ALT/SGPT 13 U/L (7.0-40); AST/SGOT 14 U/L (<34); BILIRUBIN,TOTAL 0.4 MG/DL (0.3-1.2); BLOOD UREA NITROGEN 10 MG/DL (9-23); CALCIUM LEVEL 9.2 MG/DL (8.5-10.1); CARBON DIOXIDE LEVEL 25 MMOL/L (20-31); CHLORIDE LEVEL 107 MMOL/L (98-107); CREATININE FOR GFR 0.71 MG/DL (0.55-1.30); GLOMERULAR FILTRATION RATE > 60.0 (>58); GLUCOSE, FASTING 97 MG/DL (60-100); POTASSIUM SERUM 4.6 MMOL/L (3.5-5.1); SODIUM LEVEL 141 MMOL/L (136-145); TOTAL PROTEIN 7.2 G/DL (5.7-8.2)
[2024-06-09 19:01] LABS: RHEUMATOID FACTOR QUANT < 3.5 IU/ML (<14)
[2024-06-09 20:28] LABS: ATYPICAL LYMPH 6 % (0-5); BASOPHILS 1 % (0-1); EOSINOPHILS 1 % (0-3); LYMPHOCYTES 18 % (16-44); MONOCYTES 8 % (0-5); NEUTROPHILS 65 % (28-66)
[2024-06-09 20:29] LABS: PLATELET ESTIMATE NORMAL (NORMAL)
[2024-06-09 20:31] LABS: ANISOCYTOSIS 1+
[2024-06-09 20:50] LABS: ERYTHROCYTE SEDIMENTATION RATE 12 mm/hr (0-20)
[2024-06-12 11:32] LABS: ANA PATTERN Nuclear, Nucleolar (NEGATIVE); ANA SCREEN, IFA POSITIVE (NEGATIVE)
[2024-06-14 18:57] LABS: LYME AB IGG BY CIA <= 0.90 Index (<=0.90); LYME AB IGM BY CIA <= 0.90 Index (<=0.90)
== END ==
LOC: M SFHCCLAY 09:19
PROVIDERS: ATTEND Physician Assistant
DX: L50.9 Urticaria, unspecified (principal)

== ENCOUNTER → 2025-01-29 | Outpatient (REF) | payer BC ==
[2025-01-29 12:38] LABS: PLATELET COUNT, AUTOMATED 314 10^3/uL (150-450)
[2025-01-29 12:55] LABS: FREE T4 1.05 NG/DL (0.89-1.76)
[2025-01-29 13:03] LABS: TOTAL T3 95.5 NG/DL (60.0-181.0)
== END ==
LOC: M SFHCCLAY 08:08
PROVIDERS: ATTEND Family Medicine
DX: R03.0 Elevated blood-pressure reading, without diagnosis of hypertension (principal); R73.01 Impaired fasting glucose; R79.89 Other specified abnormal findings of blood chemistry; C73 Malignant neoplasm of thyroid gland

== ENCOUNTER → 2025-04-16 | Outpatient (REF) | payer BC ==
[2025-04-16 18:22] LABS: BASO # 0.1 10^3/uL (0.0-0.2); BASO % 1.0 % (0.0-1.0); EOS # 0.1 10^3/uL (0.0-0.5); EOS % 1.6 % (0.0-3.0); LYMPH # 1.9 10^3/uL (1.5-5.0); LYMPH % 30.2 % (24.0-44.0); MONO # 0.4 10^3/uL (0.0-0.8); MONO % 6.0 % (2.0-8.0); NEUTROPHILS # 3.8 10^3/uL (1.5-8.5); NEUTROPHILS % 61.0 % (36.0-66.0); PLATELET COUNT, AUTOMATED 302 10^3/uL (150-450)
[2025-04-16 18:23] LABS: COMPLEMENT C4 21.0 MG/DL (12-36)
[2025-04-16 18:24] LABS: ALT/SGPT 13 U/L (7.0-40); AST/SGOT 13 U/L (<34); C REACTIVE PROTEIN QUANTITATIV < 0.50 MG/DL (<1.0); CALCIUM LEVEL 9.2 MG/DL (8.5-10.1); CARBON DIOXIDE LEVEL 28 MMOL/L (20-31); CHLORIDE LEVEL 105 MMOL/L (98-107); CREATININE FOR GFR 0.77 MG/DL (0.55-1.30); GLOMERULAR FILTRATION RATE > 90.0 (>58); POTASSIUM SERUM 4.4 MMOL/L (3.5-5.1); SODIUM LEVEL 140 MMOL/L (136-145)
== END ==
LOC: M LABDRAWC 17:12
PROVIDERS: ATTEND Physician Assistant
DX: M25.50 Pain in unspecified joint (principal); R76.0 Raised antibody titer